=== PATIENT | male | born 1940 | race African-American/Black ===

== ENCOUNTER 2017-03-12 19:52 | Inpatient (IN) | payer OTHER ==
[~2017-03-12] VITALS: Ht 167.6 cm; Wt 84.1 kg
[2017-03-12 21:18] LABS: EOSINOPHIL (%) 0.4 % (0-5); HEMATOCRIT 39.1 % (38.0-50.0); IMMATURE GRANULOCYTE (%) 0.6 % (0.0-0.7); IMMATURE GRANULOCYTE COUNT 0.1 K/uL; INSTRUMENT ABS NEUTROPHIL CT 7.7 K/uL; LYMPHOCYTE COUNT 1.5 K/uL (1.0-2.8); MCH 29.9 PG (29.0-34.0); MCV 90.7 FL (86-99); MEAN PLAT.VOLUME 12.5 uM^3 (9.0-12.4); MONOCYTE (%) 4.6 % (3-12); MONOCYTE COUNT 0.5 K/uL (0-0.8); NEUTROPHIL (%) 78.6 % (45-76); NEUTROPHIL COUNT 7.7 K/uL (1.8-6.4); PLATELET COUNT 241 K/uL (156-360); RBC DIS.WIDTH-CV 14.2 % (11.8-14.6); RED BLOOD COUNT 4.31 M/uL (4.00-5.50); WHITE BLOOD COUNT 9.7 K/uL (4.1-10.2)
[2017-03-12 21:26] LABS: CHLORIDE 102 mEq/L (99-109); POTASSIUM 2.9 mEq/L (3.7-5.4); SODIUM 140 mEq/L (136-147)
[2017-03-12 21:28] LABS: GLUCOSE 161 mg/dL (70-99)
[2017-03-12 21:30] LABS: ANION GAP 13 MEQ/L (2-14)
[2017-03-12 21:32] LABS: GFR ESTIMATE (CALCULATED) > 59 mL/min/
[2017-03-12 21:33] LABS: UREA NITROGEN (BUN) 14 mg/dL (9-23)
[2017-03-12 21:37] LABS: TROP-I INTERPRETATION INDETERMINATE; TROPONIN-I 0.48 ng/mL (0.0-0.30)
[2017-03-12 22:45] LABS: INTER. NORMALIZED RATIO 1.2; PROTHROMBIN TIME 13.2 SEC (10.2-12.9)
[2017-03-12 22:47] LABS: PTT 29.4 SEC (25-37)
[2017-03-13] VITALS (8 sets, daily range): BP systolic 123–143; BP diastolic 74–95
[2017-03-13] MEDS ORDERED: FORTAMET500 M1 PO (01:46)
[2017-03-13] MEDS ORDERED: UNABLE TO RECALL (01:50)
[2017-03-13 02:10] LABS: POINT-OF-CARE METER ID UU13113702
[2017-03-13 05:25] LABS: HDL CHOLESTEROL 38 MG/DL (Desirable>=40); LDL CHOLESTEROL 80 mg/dL (Desirable<100); NON-HDL CHOLESTEROL 102 mg/dL (Desirable<160); TOTAL CHOLESTEROL 140 mg/dL (Desirable<200); TRIGLYCERIDES 111 MG/DL (Normal: <150)
[2017-03-13 05:52] LABS: EOSINOPHIL (%) 0 % (0-5); HEMATOCRIT 39.4 % (38.0-50.0); IMMATURE GRANULOCYTE (%) 0.5 % (0.0-0.7); LYMPHOCYTE COUNT 0.9 K/uL (1.0-2.8); MCH 30.6 PG (29.0-34.0); MCHC 33.5 G/DL (30.0-36.0); MCV 91.2 FL (86-99); MEAN PLAT.VOLUME 12.8 uM^3 (9.0-12.4); MONOCYTE (%) 0.9 % (3-12); MONOCYTE COUNT 0.1 K/uL (0-0.8); NEUTROPHIL (%) 87.1 % (45-76); PLATELET COUNT 259 K/uL (156-360); RBC DIS.WIDTH-CV 14.2 % (11.8-14.6); RBC DIS.WIDTH-SD 47.6 % (39-53); RED BLOOD COUNT 4.32 M/uL (4.00-5.50); WHITE BLOOD COUNT 8.1 K/uL (4.1-10.2)
[2017-03-13 06:56] LABS: TROP-I INTERPRETATION INDETERMINATE; TROPONIN-I 0.43 ng/mL (0.0-0.30)
[2017-03-13 07:54] LABS: POINT-OF-CARE METER ID UU13113698
[2017-03-13 10:32] LABS: ANION GAP 16 MEQ/L (2-14); CHLORIDE 101 MEQ/L (99-109); GFR ESTIMATE (CALCULATED) > 59 mL/min/; GLUCOSE 212 mg/dL (70-99); SAMPLE HEMOLYSIS CHECK 0; SAMPLE ICTERIC CHECK 0; SAMPLE LIPEMIA CHECK 0; SODIUM 144 MEQ/L (136-147); UREA NITROGEN (BUN) 14 mg/dL (9-23)
[2017-03-13 10:33] LABS: POTASSIUM 3.9 MEQ/L (3.7-5.4)
[2017-03-13 14:55] LABS: TROP-I INTERPRETATION NEGATIVE; TROPONIN-I 0.26 ng/mL (0.0-0.30)
[2017-03-13 21:08] LABS: POINT-OF-CARE METER ID UU13113803
[2017-03-14] VITALS: BP 99/56
[2017-03-14 04:35] VITALS: BP 126/88
[2017-03-14 05:31] LABS: HEMATOCRIT 37.5 % (38.0-50.0); MCH 31.1 PG (29.0-34.0); MCHC 33.9 G/DL (30.0-36.0); MCV 91.7 FL (86-99); MEAN PLAT.VOLUME 13.1 uM^3 (9.0-12.4); PLATELET COUNT 251 K/uL (156-360); RBC DIS.WIDTH-CV 14.5 % (11.8-14.6); RBC DIS.WIDTH-SD 48.9 % (39-53); RED BLOOD COUNT 4.09 M/uL (4.00-5.50); WHITE BLOOD COUNT 10.7 K/uL (4.1-10.2)
[2017-03-14 05:55] LABS: ANION GAP 11 MEQ/L (2-14); CHLORIDE 102 MEQ/L (99-109); GFR ESTIMATE (CALCULATED) > 59 mL/min/; GLUCOSE 171 mg/dL (70-99); POTASSIUM 3.8 MEQ/L (3.7-5.4); SAMPLE HEMOLYSIS CHECK 0; SAMPLE ICTERIC CHECK 0; SAMPLE LIPEMIA CHECK 0; SODIUM 143 MEQ/L (136-147); UREA NITROGEN (BUN) 27 mg/dL (9-23)
[2017-03-14 08:06] LABS: POINT-OF-CARE METER ID UU13113698
[2017-03-14 11:20] LABS: POINT-OF-CARE METER ID UU13113781
[2017-03-14 12:02] VITALS: BP 129/82
[2017-03-14] MEDS ORDERED: LASIX40 MG PO (15:45)
[2017-03-14] MEDS ORDERED: PLAVIX75 MG PO (15:45)
[2017-03-14] MEDS ORDERED: PRINIVIL20 MG PO (15:45)
[2017-03-14] MEDS ORDERED: KLOR-CON M2020 MEQ PO (15:46)
[2017-03-14] MEDS ORDERED: LIPITOR20 MG PO (15:46)
[2017-03-14] MEDS ORDERED: GLUCOPHAGE500 MG PO (15:46)
[2017-03-14] MEDS ORDERED: DUONEB 2.5-0.5 M3 ML AEROSOL (15:47)
[2017-03-14 16:17] LABS: POINT-OF-CARE METER ID UU13113698
[2017-03-14 17:05] VITALS: BP 142/68
[2017-03-14 19:43] VITALS: BP 107/73
[2017-03-14 22:29] LABS: POINT-OF-CARE METER ID UU13113781
[2017-03-14 23:23] LABS: POINT-OF-CARE METER ID UU13113781
[2017-03-15 00:27] VITALS: BP 99/52
[2017-03-15 04:13] VITALS: BP 100/58
[2017-03-15 04:52] LABS: EOSINOPHIL (%) 0 % (0-5); HEMATOCRIT 37.8 % (38.0-50.0); IMMATURE GRANULOCYTE (%) 0.6 % (0.0-0.7); IMMATURE GRANULOCYTE COUNT 0.1 K/uL; INSTRUMENT ABS NEUTROPHIL CT 10.8 K/uL; LYMPHOCYTE COUNT 1.2 K/uL (1.0-2.8); MCH 30.6 PG (29.0-34.0); MCHC 33.3 G/DL (30.0-36.0); MCV 91.7 FL (86-99); MEAN PLAT.VOLUME 12.6 uM^3 (9.0-12.4); MONOCYTE (%) 3.7 % (3-12); MONOCYTE COUNT 0.5 K/uL (0-0.8); NEUTROPHIL (%) 86.3 % (45-76); NEUTROPHIL COUNT 10.8 K/uL (1.8-6.4); PLATELET COUNT 269 K/uL (156-360); RBC DIS.WIDTH-CV 14.3 % (11.8-14.6); RBC DIS.WIDTH-SD 48.1 % (39-53); RED BLOOD COUNT 4.12 M/uL (4.00-5.50); WHITE BLOOD COUNT 12.5 K/uL (4.1-10.2)
[2017-03-15 05:07] LABS: CHLORIDE 99 mEq/L (99-109); POTASSIUM 3.7 mEq/L (3.7-5.4); SODIUM 139 mEq/L (136-147)
[2017-03-15 05:09] LABS: GLUCOSE 224 mg/dL (70-99)
[2017-03-15 05:10] LABS: ANION GAP 12 MEQ/L (2-14)
[2017-03-15 05:12] LABS: GFR ESTIMATE (CALCULATED) > 59 mL/min/
[2017-03-15 05:13] LABS: UREA NITROGEN (BUN) 37 mg/dL (9-23)
[2017-03-15 06:52] LABS: Estimated Average Glucose 151 mg/dL (70-123); HEMOGLOBIN A1c (GLYCOHEMOGLOB) 6.9 % HGB (Below 5.7)
[2017-03-15 07:45] VITALS: BP 122/90
[2017-03-15 07:58] LABS: POINT-OF-CARE METER ID UU13113698
[2017-03-15] MEDS ORDERED: ELIQUIS5 MG PO (10:51)
[2017-03-15] MEDS ORDERED: SPIRIVA RESPIMAT4 GM IH (10:51)
[2017-03-15] MEDS ORDERED: XOPENEX1.25 MG/0. AEROSOL (10:52)
[2017-03-15] MEDS ORDERED: METOPROLOL SUCC25 MG PO (10:52)
[2017-03-15] MEDS ORDERED: NITROSTAT0.4 MG SL (10:52)
[2017-03-15] MEDS ORDERED: ADVAIR HFA120 INHALA IH (10:53)
[2017-03-15] MEDS ORDERED: ASPIR-LOW81 MG PO (10:53)
[2017-03-15] MEDS ORDERED: SOTALOL120 MG PO (10:53)
[2017-03-15] MEDS ORDERED: MEDROL DOSEPAK4 MG PO (10:54)
[2017-03-15 11:26] LABS: POINT-OF-CARE METER ID UU13113781
[2017-03-15 11:54] VITALS: BP 137/86
[2017-03-15] MEDS ORDERED: PREDNISONE10 MG PO (14:13)
[2017-03-15 15:11] VITALS: BP 102/58
== END 2017-03-15 16:10 | disposition home health service (06) | DRG 308 ==
LOC: EDBD 19:52 → EME 19:52 → EDOF 03-13 01:57 → 4EAST 03-13 01:57 → ENRESERV 03-13 01:58 → 4EAST 03-13 02:48 → ENPENDDIS 03-15 → 4EAST 03-15 16:10
PROVIDERS: Emergency Medicine; Hospitalist; Internal Medicine
PROC: 4B02XTZ Measurement of Cardiac Defibrillator, External Approach (ICD-10-PCS; principal; 2017-03-14)
DX: I48.0 Paroxysmal atrial fibrillation (principal); I50.23 Acute on chronic systolic (congestive) heart failure; J44.1 Chronic obstructive pulmonary disease with (acute) exacerbation; I47.2 Ventricular tachycardia; I47.1 Supraventricular tachycardia; J98.01 Acute bronchospasm; I27.2 Other secondary pulmonary hypertension; R74.8 Abnormal levels of other serum enzymes; I25.5 Ischemic cardiomyopathy; I25.10 Atherosclerotic heart disease of native coronary artery without angina pectoris; I11.0 Hypertensive heart disease with heart failure; E11.9 Type 2 diabetes mellitus without complications; F17.210 Nicotine dependence, cigarettes, uncomplicated; E78.5 Hyperlipidemia, unspecified; I49.9 Cardiac arrhythmia, unspecified; Z68.30 Body mass index [BMI] 30.0-30.9, adult; I25.2 Old myocardial infarction; Z79.84 Long term (current) use of oral hypoglycemic drugs; Z98.61 Coronary angioplasty status; Z95.810 Presence of automatic (implantable) cardiac defibrillator
CPT/HCPCS: 71010; 78582; 80048; 80061; 82948; 83036; 83880; 84484; 85025; 85027; 85610; 85730; 87040; 87070; 87205; 93005; 93306; 94640; 94640 76; 94799; 99202; 99281; 99285; A9540; A9567; J0696; J1100; J1644; J1815; J1940; J2930; J7050

== ENCOUNTER 2017-03-17 15:39 | Observation (INO) | payer OTHER ==
[~2017-03-17] VITALS: Ht 167.6 cm; Wt 84.0 kg
[~2017-03-17 15:39] MED LIST: ADVAIR HFA120 INHALA IH; ASPIR-LOW81 MG PO; DUONEB 2.5-0.5 M3 ML AEROSOL; ELIQUIS5 MG PO; FORTAMET500 M1 PO; GLUCOPHAGE500 MG PO; KLOR-CON M2020 MEQ PO; LASIX40 MG PO; LIPITOR20 MG PO; MEDROL DOSEPAK4 MG PO; METOPROLOL SUCC25 MG PO; NITROSTAT0.4 MG SL; PLAVIX75 MG PO; PREDNISONE10 MG PO; PRINIVIL20 MG PO; SOTALOL120 MG PO; SPIRIVA RESPIMAT4 GM IH; UNABLE TO RECALL; XOPENEX1.25 MG/0. AEROSOL
[2017-03-17 16:24] LABS: HEMATOCRIT 38.4 % (38.0-50.0); MCH 30.4 PG (29.0-34.0); MCHC 33.3 G/DL (30.0-36.0); MCV 91.2 FL (86-99); MEAN PLAT.VOLUME 11.9 uM^3 (9.0-12.4); PLATELET COUNT 233 K/uL (156-360); RBC DIS.WIDTH-CV 13.9 % (11.8-14.6); RBC DIS.WIDTH-SD 46.5 % (39-53); RED BLOOD COUNT 4.21 M/uL (4.00-5.50)
[2017-03-17 16:34] LABS: CHLORIDE 102 mEq/L (99-109); POTASSIUM 3.3 mEq/L (3.7-5.4); SODIUM 140 mEq/L (136-147)
[2017-03-17 16:35] LABS: GLUCOSE 191 mg/dL (70-99)
[2017-03-17 16:37] LABS: ANION GAP 10 MEQ/L (2-14)
[2017-03-17 16:39] LABS: GFR ESTIMATE (CALCULATED) > 59 mL/min/
[2017-03-17 16:40] LABS: UREA NITROGEN (BUN) 28 mg/dL (9-23)
[2017-03-17 16:46] LABS: TROP-I INTERPRETATION NEGATIVE; TROPONIN-I 0.08 ng/mL (0.0-0.30)
[2017-03-17 20:42] VITALS: BP 120/71
[2017-03-17 21:01] LABS: POINT-OF-CARE METER ID UU13113700
[2017-03-17 22:36] LABS: TROP-I INTERPRETATION NEGATIVE
[2017-03-17 23:17] VITALS: BP 106/75
[2017-03-18 04:29] VITALS: BP 134/76
[2017-03-18 05:30] LABS: HEMATOCRIT 39.4 % (38.0-50.0); MCH 30.2 PG (29.0-34.0); MCHC 33.2 G/DL (30.0-36.0); MCV 90.8 FL (86-99); MEAN PLAT.VOLUME 12.9 uM^3 (9.0-12.4); PLATELET COUNT 236 K/uL (156-360); RBC DIS.WIDTH-CV 13.6 % (11.8-14.6); RBC DIS.WIDTH-SD 45.5 % (39-53); RED BLOOD COUNT 4.34 M/uL (4.00-5.50); WHITE BLOOD COUNT 9.3 K/uL (4.1-10.2)
[2017-03-18 05:42] LABS: TROP-I INTERPRETATION NEGATIVE; TROPONIN-I 0.07 ng/mL (0.0-0.30)
[2017-03-18 05:57] LABS: ANION GAP 11 MEQ/L (2-14); CHLORIDE 101 MEQ/L (99-109); GFR ESTIMATE (CALCULATED) > 59 mL/min/; GLUCOSE 182 mg/dL (70-99); SAMPLE HEMOLYSIS CHECK 0; SAMPLE ICTERIC CHECK 0; SAMPLE LIPEMIA CHECK 0; SODIUM 140 MEQ/L (136-147); UREA NITROGEN (BUN) 26 mg/dL (9-23)
[2017-03-18 08:07] LABS: POINT-OF-CARE METER ID UU13113700
[2017-03-18 08:40] VITALS: BP 132/76
[2017-03-18 11:17] VITALS: BP 126/81
[2017-03-18] MEDS ORDERED: AZITHROMYCIN500 M1 PO (12:25)
[2017-03-18 12:44] LABS: POINT-OF-CARE METER ID UU13113700
== END 2017-03-18 14:53 | disposition home or self-care (01) ==
LOC: EME 15:39 → EDOF 18:24 → ENRESERV 18:27 → 5WEST 20:16
PROVIDERS: Emergency Medicine; Hospitalist
DX: I50.23 Acute on chronic systolic (congestive) heart failure (principal); J44.1 Chronic obstructive pulmonary disease with (acute) exacerbation; I10 Essential (primary) hypertension; I42.9 Cardiomyopathy, unspecified; Z95.810 Presence of automatic (implantable) cardiac defibrillator; I48.0 Paroxysmal atrial fibrillation; Z79.01 Long term (current) use of anticoagulants; E11.9 Type 2 diabetes mellitus without complications; E05.90 Thyrotoxicosis, unspecified without thyrotoxic crisis or storm; I25.10 Atherosclerotic heart disease of native coronary artery without angina pectoris; E78.5 Hyperlipidemia, unspecified; F17.210 Nicotine dependence, cigarettes, uncomplicated
CPT/HCPCS: 71010; 71020; 80048; 82948; 83880; 84484; 85027; 93005; 94640; 94640 76; 94799; 99202; 99281; 99285; G0378; G8978 GP CI; G8979 GP CH; G8987 GO CI; G8988 GO CH; G8989 GO CH; J1815; J1940; J2930

== ENCOUNTER 2017-03-20 20:47 | Emergency (ER) | payer OTHER ==
[~2017-03-20] VITALS: Ht 167.6 cm; Wt 82.8 kg
[~2017-03-20 20:47] MED LIST changes: +AZITHROMYCIN500 M1 PO
[2017-03-20 21:43] LABS: HEMATOCRIT 40.4 % (38.0-50.0); MCH 30.4 PG (29.0-34.0); MCHC 33.7 G/DL (30.0-36.0); MCV 90.2 FL (86-99); RBC DIS.WIDTH-CV 13.6 % (11.8-14.6); RBC DIS.WIDTH-SD 44.7 % (39-53); RED BLOOD COUNT 4.48 M/uL (4.00-5.50)
[2017-03-20 21:49] LABS: INTER. NORMALIZED RATIO 1.7; PROTHROMBIN TIME 18.7 SEC (10.2-12.9)
[2017-03-20 21:51] LABS: CHLORIDE 99 mEq/L (99-109); POTASSIUM 3.3 mEq/L (3.7-5.4); SODIUM 139 mEq/L (136-147)
[2017-03-20 21:52] LABS: PTT 34.2 SEC (25-37)
[2017-03-20 21:53] LABS: GLUCOSE 199 mg/dL (70-99)
[2017-03-20 21:54] LABS: ANION GAP 12 MEQ/L (2-14)
[2017-03-20 21:57] LABS: GFR ESTIMATE (CALCULATED) > 59 mL/min/; UREA NITROGEN (BUN) 23 mg/dL (9-23)
[2017-03-20 22:26] LABS: TROP-I INTERPRETATION NEGATIVE; TROPONIN-I 0.04 ng/mL (0.0-0.30)
[2017-03-20] MEDS ORDERED: ZITHROMAX250 MG PO (22:56)
[2017-03-20] MEDS ORDERED: PREDNISONE50 MG PO (22:56)
[2017-03-20 23:09] VITALS: BP 106/68
[2017-03-20 23:15] LABS: MEAN PLAT.VOLUME 12.1 uM^3 (9.0-12.4); PLAT.SUFFICIENCY ADEQUATE; PLATELET COUNT 272 K/uL (156-360)
== END 2017-03-20 23:36 | disposition home or self-care (01) ==
LOC: EME → EDBD 20:47 → EME 23:36
PROVIDERS: Emergency Medicine
DX: J44.1 Chronic obstructive pulmonary disease with (acute) exacerbation (principal); R07.89 Other chest pain; I25.2 Old myocardial infarction; F17.200 Nicotine dependence, unspecified, uncomplicated
CPT/HCPCS: 71020; 80048; 84484; 85027; 85610; 85730; 93005; 94640; J1885; J7512

== ENCOUNTER 2017-03-30 00:01 | Inpatient (IN) | payer OTHER ==
[~2017-03-30] VITALS: Ht 167.6 cm; Wt 81.2 kg
[~2017-03-30 00:01] MED LIST changes: +PREDNISONE50 MG PO; +ZITHROMAX250 MG PO
[2017-03-30 00:46] LABS: HEMATOCRIT 39.6 % (38.0-50.0); MCH 30.3 PG (29.0-34.0); MCHC 33.8 G/DL (30.0-36.0); MCV 89.6 FL (86-99); RBC DIS.WIDTH-CV 13.7 % (11.8-14.6); RBC DIS.WIDTH-SD 44.9 % (39-53); RED BLOOD COUNT 4.42 M/uL (4.00-5.50); WHITE BLOOD COUNT 8.4 K/uL (4.1-10.2)
[2017-03-30 00:50] LABS: INTER. NORMALIZED RATIO 1.4
[2017-03-30 00:53] LABS: CHLORIDE 100 mEq/L (99-109); PTT 31.6 SEC (25-37); SODIUM 138 mEq/L (136-147)
[2017-03-30 00:55] LABS: GLUCOSE 117 mg/dL (70-99)
[2017-03-30 00:56] LABS: ANION GAP 11 MEQ/L (2-14)
[2017-03-30 00:57] LABS: TOTAL BILIRUBIN 0.7 mg/dL (0.0-1.0)
[2017-03-30 00:59] LABS: ALKALINE PHOSPHATASE 53 IU/L (3-129); GFR ESTIMATE (CALCULATED) > 59 mL/min/
[2017-03-30 01:00] LABS: UREA NITROGEN (BUN) 16 mg/dL (9-23)
[2017-03-30 01:02] LABS: LIPASE 32 U/L (1.0-51.0)
[2017-03-30 01:05] LABS: TROP-I INTERPRETATION NEGATIVE; TROPONIN-I 0.07 ng/mL (0.0-0.30)
[2017-03-30 01:49] LABS: MEAN PLAT.VOLUME 11.6 uM^3 (9.0-12.4); PLAT.SUFFICIENCY ADEQUATE
[2017-03-30 01:50] LABS: PLATELET COUNT 170 K/uL (156-360)
[2017-03-30 05:47] VITALS: BP 106/55
[2017-03-30 06:50] LABS: ANION GAP 6 MEQ/L (2-14); CHLORIDE 102 MEQ/L (99-109); GFR ESTIMATE (CALCULATED) > 59 mL/min/; GLUCOSE 117 mg/dL (70-99); POTASSIUM 3.9 MEQ/L (3.7-5.4); SAMPLE HEMOLYSIS CHECK 0; SAMPLE ICTERIC CHECK 0; SAMPLE LIPEMIA CHECK 0; SODIUM 140 MEQ/L (136-147); UREA NITROGEN (BUN) 16 mg/dL (9-23)
[2017-03-30 06:54] LABS: TROP-I INTERPRETATION NEGATIVE; TROPONIN-I 0.09 ng/mL (0.0-0.30)
[2017-03-30 08:22] LABS: POINT-OF-CARE METER ID UU13113781
[2017-03-30 08:30] VITALS: BP 90/54
[2017-03-30 11:15] LABS: POINT-OF-CARE METER ID UU13113781
[2017-03-30 11:57] VITALS: BP 98/62
[2017-03-30 13:38] LABS: TROP-I INTERPRETATION NEGATIVE; TROPONIN-I 0.04 ng/mL (0.0-0.30)
[2017-03-30 15:40] VITALS: BP 122/68
== END 2017-03-30 16:21 | disposition home health service (06) | DRG 313 ==
LOC: EME 00:01 → 4EAST 03:30 → EDOF 03:30 → ENRESERV 03:32 → 4EAST 05:37
PROVIDERS: Emergency Medicine; Hospitalist
DX: R07.89 Other chest pain (principal); I95.9 Hypotension, unspecified; I25.10 Atherosclerotic heart disease of native coronary artery without angina pectoris; I11.0 Hypertensive heart disease with heart failure; I50.22 Chronic systolic (congestive) heart failure; I48.0 Paroxysmal atrial fibrillation; J44.1 Chronic obstructive pulmonary disease with (acute) exacerbation; E11.9 Type 2 diabetes mellitus without complications; E78.5 Hyperlipidemia, unspecified; E87.6 Hypokalemia; I25.5 Ischemic cardiomyopathy; I49.3 Ventricular premature depolarization; F17.200 Nicotine dependence, unspecified, uncomplicated; I25.2 Old myocardial infarction; Z95.5 Presence of coronary angioplasty implant and graft; Z95.810 Presence of automatic (implantable) cardiac defibrillator; Z99.81 Dependence on supplemental oxygen; Z79.01 Long term (current) use of anticoagulants; Z79.82 Long term (current) use of aspirin; Z79.4 Long term (current) use of insulin
CPT/HCPCS: 71020; 80048 91; 80053; 81003; 82948; 83605; 83690; 83880; 84443; 84484; 85027; 85610; 85730; 87040; 93005; 94640; 99202; 99281; 99285; J1815; J7030; J7512

== ENCOUNTER 2017-04-20 18:35 | Emergency (ER) | payer OTHER ==
[~2017-04-20] VITALS: Ht 167.6 cm; Wt 78.6 kg
[2017-04-20 19:21] LABS: HEMATOCRIT 41.6 % (38.0-50.0); MCH 30.3 PG (29.0-34.0); MCHC 34.6 G/DL (30.0-36.0); MCV 87.6 FL (86-99); MEAN PLAT.VOLUME 11.5 uM^3 (9.0-12.4); RBC DIS.WIDTH-CV 13.3 % (11.8-14.6); RBC DIS.WIDTH-SD 42.8 % (39-53); RED BLOOD COUNT 4.75 M/uL (4.00-5.50); WHITE BLOOD COUNT 10.1 K/uL (4.1-10.2)
[2017-04-20 19:22] LABS: PLATELET COUNT 250 K/uL (156-360)
[2017-04-20 19:35] LABS: CHLORIDE 100 mEq/L (99-109); POTASSIUM 3.5 mEq/L (3.7-5.4); SODIUM 137 mEq/L (136-147)
[2017-04-20 19:38] LABS: GLUCOSE 163 mg/dL (70-99)
[2017-04-20 19:39] LABS: ANION GAP 16 MEQ/L (2-14)
[2017-04-20 19:40] LABS: TOTAL BILIRUBIN 0.4 mg/dL (0.0-1.0)
[2017-04-20 19:41] LABS: ALKALINE PHOSPHATASE 55 IU/L (3-129); GFR ESTIMATE (CALCULATED) > 59 mL/min/
[2017-04-20 19:43] LABS: UREA NITROGEN (BUN) 20 mg/dL (9-23)
[2017-04-20 21:23] LABS: ADD MIUA? YES; BILIRUBIN NEGATIVE; BLOOD SMALL; COLOR YELLOW ((YELLOW)); GLUCOSE (STRIP) NEGATIVE; KETONES NEGATIVE; LEUKOCYTES NEGATIVE; NITRITE NEGATIVE; PROTEIN (STRIP) NEGATIVE; SPECIFIC GRAVITY 1.011 (1.000-1.030); UROBILINOGEN 0.2 MG/DL (0.2-1.0)
[2017-04-20 21:31] LABS: BACTERIA NONE SEEN /HPF; EPITHELIAL CELLS RARE /HPF; MUCUS TRACE /LPF; RED BLOOD CELLS 0-5 /HPF (0-5); UCUL ADDED? NO; WHITE BLOOD CELLS 0-5 /HPF (0-5)
[2017-04-21] MEDS ORDERED: ZOFRAN ODT4 MG PO (00:02)
[2017-04-21] MEDS ORDERED: MOTRIN600 MG PO (00:02)
[2017-04-21] MEDS ORDERED: BENTYL20 MG PO (00:02)
[2017-04-21 00:28] VITALS: BP 134/95
== END 2017-04-21 00:31 | disposition home or self-care (01) ==
LOC: EME 18:35
DX: R10.32 Left lower quadrant pain (principal); R31.9 Hematuria, unspecified; R11.2 Nausea with vomiting, unspecified; I11.0 Hypertensive heart disease with heart failure; I50.9 Heart failure, unspecified; E11.9 Type 2 diabetes mellitus without complications; Z79.84 Long term (current) use of oral hypoglycemic drugs; I25.2 Old myocardial infarction; F12.90 Cannabis use, unspecified, uncomplicated; F17.200 Nicotine dependence, unspecified, uncomplicated
CPT/HCPCS: 74177; 80053; 81003; 85027; 99281; 99285; J1885; J7030

== ENCOUNTER 2017-05-03 19:16 | Inpatient (IN) | payer OTHER ==
[~2017-05-03] VITALS: Ht 167.6 cm; Wt 78.8 kg
[~2017-05-03 19:16] MED LIST changes: +BENTYL20 MG PO; +MOTRIN600 MG PO; +ZOFRAN ODT4 MG PO
[2017-05-03 19:58] LABS: HEMATOCRIT 37.7 % (38.0-50.0); MCH 30.8 PG (29.0-34.0); MCHC 33.7 G/DL (30.0-36.0); MCV 91.5 FL (86-99); MEAN PLAT.VOLUME 11.3 uM^3 (9.0-12.4); PLATELET COUNT 301 K/uL (156-360); RBC DIS.WIDTH-CV 13.8 % (11.8-14.6); RBC DIS.WIDTH-SD 46.5 % (39-53); RED BLOOD COUNT 4.12 M/uL (4.00-5.50)
[2017-05-03 20:14] LABS: CHLORIDE 105 mEq/L (99-109); POTASSIUM 3.7 mEq/L (3.7-5.4); SODIUM 143 mEq/L (136-147)
[2017-05-03 20:16] LABS: GLUCOSE 173 mg/dL (70-99)
[2017-05-03 20:17] LABS: ANION GAP 14 MEQ/L (2-14)
[2017-05-03 20:20] LABS: GFR ESTIMATE (CALCULATED) > 59 mL/min/
[2017-05-03 20:21] LABS: UREA NITROGEN (BUN) 45 mg/dL (9-23)
[2017-05-03 21:43] LABS: TROP-I INTERPRETATION NEGATIVE; TROPONIN-I 0.04 ng/mL (0.0-0.30)
[2017-05-03 22:00] LABS: PTT 32.4 SEC (25-37)
[2017-05-03] MEDS ORDERED: PLAVIX75 MG PO (22:33)
[2017-05-03] MEDS ORDERED: DUONEB 2.5-0.5 M3 ML AEROSOL (22:33)
[2017-05-03 23:27] LABS: INTER. NORMALIZED RATIO 1.6
[2017-05-03 23:40] LABS: ADD MIUA? NO; BILIRUBIN NEGATIVE; BLOOD NEGATIVE; COLOR YELLOW ((YELLOW)); GLUCOSE (STRIP) NEGATIVE; KETONES 5; LEUKOCYTES NEGATIVE; NITRITE NEGATIVE; PROTEIN (STRIP) NEGATIVE; SPECIFIC GRAVITY 1.015 (1.000-1.030); UCUL ADDED? NO; UROBILINOGEN 0.2 MG/DL (0.2-1.0)
[2017-05-04] VITALS (17 sets, daily range): BP systolic 110–135; BP diastolic 60–100
[2017-05-04] LABS: WHITE BLOOD COUNT 14.4 K/uL (4.1-10.2)
[2017-05-04 00:01] LABS: MCH 30.3 PG (29.0-34.0); MCHC 33.2 G/DL (30.0-36.0); MCV 91.2 FL (86-99); MEAN PLAT.VOLUME 11.6 uM^3 (9.0-12.4); PLATELET COUNT 229 K/uL (156-360); RBC DIS.WIDTH-CV 13.9 % (11.8-14.6); RBC DIS.WIDTH-SD 46.6 % (39-53)
[2017-05-04 01:09] LABS: TOTAL BILIRUBIN 0.5 mg/dL (0.0-1.0)
[2017-05-04 01:10] LABS: ALKALINE PHOSPHATASE 48 IU/L (3-129)
[2017-05-04 01:12] LABS: DIRECT BILIRUBIN 0.2 mg/dL (0.0-0.3)
[2017-05-04 01:13] LABS: LIPASE 12 U/L (1.0-51.0)
[2017-05-04 01:28] LABS: POINT-OF-CARE METER ID UU14174216
[2017-05-04 01:45] LABS: MCV 90.1 FL (86-99)
[2017-05-04 05:30] LABS: EOSINOPHIL (%) 0.1 % (0-5); HEMATOCRIT 28.1 % (38.0-50.0); IMMATURE GRANULOCYTE (%) 0.5 % (0.0-0.7); IMMATURE GRANULOCYTE COUNT 0.1 K/uL; INSTRUMENT ABS NEUTROPHIL CT 8.9 K/uL; LYMPHOCYTE COUNT 4.9 K/uL (1.0-2.8); MCH 31.6 PG (29.0-34.0); MCHC 34.2 G/DL (30.0-36.0); MCV 92.4 FL (86-99); MONOCYTE COUNT 1.4 K/uL (0-0.8); NEUTROPHIL (%) 58.1 % (45-76); NEUTROPHIL COUNT 8.9 K/uL (1.8-6.4); PLATELET COUNT 221 K/uL (156-360); RBC DIS.WIDTH-CV 14.1 % (11.8-14.6); RBC DIS.WIDTH-SD 47.7 % (39-53); RED BLOOD COUNT 3.04 M/uL (4.00-5.50); WHITE BLOOD COUNT 15.3 K/uL (4.1-10.2)
[2017-05-04 05:53] LABS: ANION GAP 9 MEQ/L (2-14); CHLORIDE 108 MEQ/L (99-109); GFR ESTIMATE (CALCULATED) > 59 mL/min/; GLUCOSE 132 mg/dL (70-99); POTASSIUM 3.5 MEQ/L (3.7-5.4); SAMPLE HEMOLYSIS CHECK 0; SAMPLE ICTERIC CHECK 0; SAMPLE LIPEMIA CHECK 0; SODIUM 146 MEQ/L (136-147); UREA NITROGEN (BUN) 47 mg/dL (9-23)
[2017-05-04 06:35] LABS: POINT-OF-CARE METER ID UU14174216
[2017-05-04 08:22] LABS: HEMATOCRIT 28.3 % (38.0-50.0); MCV 91.3 FL (86-99)
[2017-05-04 10:31] LABS: C DIFF TOXIN NEGATIVE (NEGATIVE)
[2017-05-04 10:32] LABS: PROBE CHECK PASS; SPECIMEN PROCESSING CONTROL PASS
[2017-05-04 12:28] LABS: POINT-OF-CARE METER ID UU14314088
[2017-05-04 14:07] LABS: HEMATOCRIT 28.1 % (38.0-50.0)
[2017-05-04 15:54] LABS: POINT-OF-CARE METER ID UU14107333
[2017-05-04 18:40] LABS: EOSINOPHIL (%) 0 % (0-5); IMMATURE GRANULOCYTE (%) 0.6 % (0.0-0.7); IMMATURE GRANULOCYTE COUNT 0.1 K/uL; INSTRUMENT ABS NEUTROPHIL CT 10.2 K/uL; LYMPHOCYTE COUNT 3.1 K/uL (1.0-2.8); MCH 30.6 PG (29.0-34.0); MCHC 32.9 G/DL (30.0-36.0); MEAN PLAT.VOLUME 11.5 uM^3 (9.0-12.4); MONOCYTE (%) 5.3 % (3-12); MONOCYTE COUNT 0.8 K/uL (0-0.8); NEUTROPHIL (%) 71.8 % (45-76); NEUTROPHIL COUNT 10.2 K/uL (1.8-6.4); PLATELET COUNT 243 K/uL (156-360); RBC DIS.WIDTH-CV 14.1 % (11.8-14.6); RBC DIS.WIDTH-SD 47.7 % (39-53); RED BLOOD COUNT 3.01 M/uL (4.00-5.50); WHITE BLOOD COUNT 14.2 K/uL (4.1-10.2)
[2017-05-04 18:46] LABS: MCH 30.6 PG (29.0-34.0); MCHC 32.9 G/DL (30.0-36.0); MEAN PLAT.VOLUME 11.5 uM^3 (9.0-12.4); PLATELET COUNT 243 K/uL (156-360); RBC DIS.WIDTH-CV 14.1 % (11.8-14.6); RBC DIS.WIDTH-SD 47.7 % (39-53); RED BLOOD COUNT 3.01 M/uL (4.00-5.50); WHITE BLOOD COUNT 14.2 K/uL (4.1-10.2)
[2017-05-04 18:49] LABS: ANION GAP 10 MEQ/L (2-14); CHLORIDE 110 MEQ/L (99-109); MAGNESIUM 1.6 mg/dl (1.3-2.7); POTASSIUM 4.1 MEQ/L (3.7-5.4); SAMPLE HEMOLYSIS CHECK 0; SAMPLE ICTERIC CHECK 0; SAMPLE LIPEMIA CHECK 0; SODIUM 147 MEQ/L (136-147)
[2017-05-04 18:54] LABS: GFR ESTIMATE (CALCULATED) > 59 mL/min/; GLUCOSE 197 mg/dL (70-99); UREA NITROGEN (BUN) 48 mg/dL (9-23)
[2017-05-04 19:24] LABS: METH RESISTANT S AUREUS PCR NEGATIVE (NEGATIVE); PROBE CHECK PASS; SPECIMEN PROCESSING CONTROL PASS
[2017-05-05] VITALS (21 sets, daily range): BP systolic 82–122; BP diastolic 36–89
[2017-05-05 00:31] LABS: MCV 90.9 FL (86-99)
[2017-05-05 08:51] LABS: POINT-OF-CARE METER ID UU14314083
[2017-05-05 10:48] LABS: HEMATOCRIT 29.5 % (38.0-50.0); MCH 30.1 PG (29.0-34.0); MCHC 32.9 G/DL (30.0-36.0); MCV 91.6 FL (86-99); MEAN PLAT.VOLUME 11.5 uM^3 (9.0-12.4); PLATELET COUNT 174 K/uL (156-360); RBC DIS.WIDTH-CV 15.5 % (11.8-14.6); RBC DIS.WIDTH-SD 51.5 % (39-53); RED BLOOD COUNT 3.22 M/uL (4.00-5.50); WHITE BLOOD COUNT 12.3 K/uL (4.1-10.2)
[2017-05-05 10:51] LABS: INTER. NORMALIZED RATIO 1.3; PROTHROMBIN TIME 14.4 SEC (10.2-12.9)
[2017-05-05 11:36] LABS: ANION GAP 11 MEQ/L (2-14); GFR ESTIMATE (CALCULATED) > 59 mL/min/; GLUCOSE 154 mg/dL (70-99); MAGNESIUM 1.7 mg/dl (1.3-2.7); SAMPLE HEMOLYSIS CHECK 0; SAMPLE ICTERIC CHECK 0; SAMPLE LIPEMIA CHECK 0; UREA NITROGEN (BUN) 33 mg/dL (9-23)
[2017-05-05 12:04] LABS: CHLORIDE 110 MEQ/L (99-109); SODIUM 150 MEQ/L (136-147)
[2017-05-05 12:14] LABS: HEMATOCRIT 30.5 % (38.0-50.0); MCV 91.3 FL (86-99)
[2017-05-05 13:44] LABS: POINT-OF-CARE METER ID UU14107333
[2017-05-05 17:27] LABS: HEMATOCRIT 26.8 % (38.0-50.0); MCV 91.2 FL (86-99)
[2017-05-05 18:21] LABS: POINT-OF-CARE METER ID UU13113803
[2017-05-05 22:51] LABS: POINT-OF-CARE METER ID UU14314083
[2017-05-06] VITALS (15 sets, daily range): BP systolic 91–120; BP diastolic 51–76
[2017-05-06 00:49] LABS: HEMATOCRIT 27.3 % (38.0-50.0); MCV 88.9 FL (86-99)
[2017-05-06 01:58] LABS: POINT-OF-CARE METER ID UU14314083
[2017-05-06 05:22] LABS: BASOPHIL COUNT 0.1 K/uL (0-0.1); EOSINOPHIL (%) 0.9 % (0-5); EOSINOPHIL COUNT 0.1 K/uL (0-0.3); IMMATURE GRANULOCYTE (%) 0.5 % (0.0-0.7); IMMATURE GRANULOCYTE COUNT 0.1 K/uL; INSTRUMENT ABS NEUTROPHIL CT 7.3 K/uL; LYMPHOCYTE COUNT 3.5 K/uL (1.0-2.8); MCHC 32.7 G/DL (30.0-36.0); MCV 91.9 FL (86-99); MONOCYTE (%) 9.4 % (3-12); MONOCYTE COUNT 1.1 K/uL (0-0.8); NEUTROPHIL (%) 59.6 % (45-76); NEUTROPHIL COUNT 7.3 K/uL (1.8-6.4); PLATELET COUNT 157 K/uL (156-360); RBC DIS.WIDTH-CV 15.9 % (11.8-14.6); RBC DIS.WIDTH-SD 53.6 % (39-53); RED BLOOD COUNT 2.83 M/uL (4.00-5.50); WHITE BLOOD COUNT 12.2 K/uL (4.1-10.2)
[2017-05-06 05:51] LABS: ANION GAP 7 MEQ/L (2-14); CHLORIDE 105 MEQ/L (99-109); GFR ESTIMATE (CALCULATED) > 59 mL/min/; GLUCOSE 119 mg/dL (70-99); SAMPLE HEMOLYSIS CHECK 0; SAMPLE ICTERIC CHECK 0; SAMPLE LIPEMIA CHECK 0; SODIUM 146 MEQ/L (136-147); UREA NITROGEN (BUN) 19 mg/dL (9-23)
[2017-05-06 05:52] LABS: POTASSIUM 2.9 MEQ/L (3.7-5.4)
[2017-05-06 06:18] LABS: POINT-OF-CARE METER ID UU14314083
[2017-05-06 09:28] LABS: MAGNESIUM 2.1 mg/dl (1.3-2.7)
[2017-05-06 12:57] LABS: POINT-OF-CARE METER ID UU14314083
[2017-05-06 16:49] LABS: POINT-OF-CARE METER ID UU14314088
[2017-05-06 18:09] LABS: HEMATOCRIT 27.1 % (38.0-50.0)
[2017-05-06 20:32] LABS: POINT-OF-CARE METER ID UU14314088
[2017-05-07 04:27] VITALS: BP 121/64
[2017-05-07 05:32] LABS: EOSINOPHIL (%) 1.9 % (0-5); EOSINOPHIL COUNT 0.2 K/uL (0-0.3); HEMATOCRIT 24.6 % (38.0-50.0); IMMATURE GRANULOCYTE (%) 0.5 % (0.0-0.7); IMMATURE GRANULOCYTE COUNT 0.1 K/uL; INSTRUMENT ABS NEUTROPHIL CT 7.7 K/uL; LYMPHOCYTE COUNT 3.6 K/uL (1.0-2.8); MCH 30.9 PG (29.0-34.0); MCHC 34.1 G/DL (30.0-36.0); MCV 90.4 FL (86-99); MEAN PLAT.VOLUME 12.3 uM^3 (9.0-12.4); MONOCYTE (%) 7.7 % (3-12); NEUTROPHIL (%) 60.8 % (45-76); NEUTROPHIL COUNT 7.7 K/uL (1.8-6.4); PLATELET COUNT 160 K/uL (156-360); RBC DIS.WIDTH-CV 15.1 % (11.8-14.6); RBC DIS.WIDTH-SD 49.3 % (39-53); RED BLOOD COUNT 2.72 M/uL (4.00-5.50); WHITE BLOOD COUNT 12.6 K/uL (4.1-10.2)
[2017-05-07 06:00] LABS: ANION GAP 8 MEQ/L (2-14); CHLORIDE 103 MEQ/L (99-109); GFR ESTIMATE (CALCULATED) > 59 mL/min/; GLUCOSE 116 mg/dL (70-99); MAGNESIUM 1.8 mg/dl (1.3-2.7); POTASSIUM 3.2 MEQ/L (3.7-5.4); SAMPLE HEMOLYSIS CHECK 0; SAMPLE ICTERIC CHECK 0; SAMPLE LIPEMIA CHECK 0; SODIUM 140 MEQ/L (136-147); UREA NITROGEN (BUN) 13 mg/dL (9-23)
[2017-05-07 07:53] VITALS: BP 112/71
[2017-05-07 07:53] LABS: POINT-OF-CARE METER ID UU13113698
[2017-05-07 11:24] LABS: POINT-OF-CARE METER ID UU13113781
[2017-05-07 11:44] VITALS: BP 98/63
[2017-05-07 15:45] VITALS: BP 113/58
[2017-05-07 16:15] LABS: POINT-OF-CARE METER ID UU13113698
[2017-05-07 19:18] LABS: ANION GAP 8 MEQ/L (2-14); CHLORIDE 104 MEQ/L (99-109); GFR ESTIMATE (CALCULATED) > 59 mL/min/; GLUCOSE 150 mg/dL (70-99); POTASSIUM 3.7 MEQ/L (3.7-5.4); SAMPLE HEMOLYSIS CHECK 0; SAMPLE ICTERIC CHECK 0; SAMPLE LIPEMIA CHECK 0; SODIUM 137 MEQ/L (136-147); UREA NITROGEN (BUN) 9 mg/dL (9-23)
[2017-05-07 19:27] VITALS: BP 106/57
[2017-05-07 19:34] LABS: HEMATOCRIT 26.2 % (38.0-50.0); MCV 91.3 FL (86-99)
[2017-05-07 21:13] LABS: POINT-OF-CARE METER ID UU14314088
[2017-05-08 00:07] VITALS: BP 103/64
[2017-05-08 04:51] VITALS: BP 102/56
[2017-05-08 07:40] LABS: HEMATOCRIT 26.8 % (38.0-50.0); MCH 31.3 PG (29.0-34.0); MCV 92.1 FL (86-99); PLATELET COUNT 181 K/uL (156-360); RBC DIS.WIDTH-CV 15.2 % (11.8-14.6); RED BLOOD COUNT 2.91 M/uL (4.00-5.50); WHITE BLOOD COUNT 11.4 K/uL (4.1-10.2)
[2017-05-08 07:49] VITALS: BP 113/77
[2017-05-08 07:50] LABS: POINT-OF-CARE METER ID UU14314088
[2017-05-08 08:07] LABS: ANION GAP 7 MEQ/L (2-14); CHLORIDE 105 MEQ/L (99-109); GFR ESTIMATE (CALCULATED) > 59 mL/min/; GLUCOSE 124 mg/dL (70-99); POTASSIUM 3.6 MEQ/L (3.7-5.4); SAMPLE HEMOLYSIS CHECK 0; SAMPLE ICTERIC CHECK 0; SAMPLE LIPEMIA CHECK 0; SODIUM 142 MEQ/L (136-147); UREA NITROGEN (BUN) 8 mg/dL (9-23)
[2017-05-08] MEDS ORDERED: LOPRESSOR25 MG PO (09:00)
[2017-05-08] MEDS ORDERED: FUROSEMIDE20 MG PO (09:02)
[2017-05-08] MEDS ORDERED: PROTONIX40 MG PO (09:03)
[2017-05-08] MEDS ORDERED: ALDACTONE25 MG PO (09:04)
[2017-05-08 11:10] LABS: POINT-OF-CARE METER ID UU14314088
[2017-05-08 11:35] VITALS: BP 96/69
== END 2017-05-08 13:31 | disposition home or self-care (01) | DRG 377 ==
LOC: EME 19:16 → 4WEST 22:30 → EDOF 22:30 → 4EAST 22:30 → ENRESERV 22:32 → 4EAST 05-04 00:35 → CANRESERV 05-04 16:36 → ENRESERV 05-04 16:36 → 4EAST 05-04 16:43 → ENRESERV 05-04 17:19 → 4WEST 05-04 17:42 → CANRESERV 05-06 14:58 → ENRESERV 05-06 14:58 → 4EAST 05-06 16:21
PROVIDERS: Emergency Medicine; Family Medicine; Hospitalist; Internal Medicine Critical Care Medicine; Internal Medicine Gastroenterology; Surgery
PROC: 30233N1 Transfusion of Nonautologous Red Blood Cells into Peripheral Vein, Percutaneous Approach (ICD-10-PCS; 2017-05-03)
PROC: 3E0G8GC Introduction of Other Therapeutic Substance into Upper GI, Via Natural or Artificial Opening Endoscopic (ICD-10-PCS; principal; 2017-05-04)
PROC: 0DJ68ZZ Inspection of Stomach, Via Natural or Artificial Opening Endoscopic (ICD-10-PCS; 2017-05-05)
DX: K25.4 Chronic or unspecified gastric ulcer with hemorrhage (principal); I48.0 Paroxysmal atrial fibrillation; I25.5 Ischemic cardiomyopathy; D62 Acute posthemorrhagic anemia; J44.9 Chronic obstructive pulmonary disease, unspecified; E78.5 Hyperlipidemia, unspecified; I27.20 Pulmonary hypertension, unspecified; F17.200 Nicotine dependence, unspecified, uncomplicated; E05.90 Thyrotoxicosis, unspecified without thyrotoxic crisis or storm; I42.0 Dilated cardiomyopathy; I49.3 Ventricular premature depolarization; I47.2 Ventricular tachycardia; E11.9 Type 2 diabetes mellitus without complications; R79.1 Abnormal coagulation profile; I11.0 Hypertensive heart disease with heart failure; I50.23 Acute on chronic systolic (congestive) heart failure; E87.6 Hypokalemia; I25.10 Atherosclerotic heart disease of native coronary artery without angina pectoris; H91.90 Unspecified hearing loss, unspecified ear; K29.80 Duodenitis without bleeding; Z95.5 Presence of coronary angioplasty implant and graft; Z95.810 Presence of automatic (implantable) cardiac defibrillator; Z79.84 Long term (current) use of oral hypoglycemic drugs
CPT/HCPCS: 71010; 74177; 80048; 80048 91; 80069; 80076; 81003; 82040; 82948; 83605; 83690; 83735; 83880; 84484; 85014; 85018; 85025; 85025 91; 85027; 85610; 85730; 86850; 86900; 86901; 86920; 87493; 87641; 93005; 94010; 94640; 94640 76; 94799; 97530 GO; 99202; 99281; 99285; C9113; J1815; J2270; J2405; J3475; J3480; J7030; J7050; P9016; P9017; S0028

== ENCOUNTER 2017-05-08 21:30 | Inpatient (IN) | payer OTHER ==
[~2017-05-08] VITALS: Ht 167.6 cm; Wt 79.5 kg
[~2017-05-08 21:30] MED LIST changes: +ALDACTONE25 MG PO; +FUROSEMIDE20 MG PO; +LOPRESSOR25 MG PO; +PROTONIX40 MG PO
[2017-05-08 22:07] LABS: POINT-OF-CARE METER ID UU13113778
[2017-05-08 23:02] LABS: CHLORIDE 107 mEq/L (99-109); SODIUM 141 mEq/L (136-147)
[2017-05-08 23:04] LABS: GLUCOSE 119 mg/dL (70-99)
[2017-05-08 23:05] LABS: ANION GAP 7 MEQ/L (2-14)
[2017-05-08 23:08] LABS: GFR ESTIMATE (CALCULATED) > 59 mL/min/
[2017-05-08 23:09] LABS: UREA NITROGEN (BUN) 11 mg/dL (9-23)
[2017-05-08 23:17] LABS: TROP-I INTERPRETATION POSITIVE
[2017-05-08 23:18] LABS: TROPONIN-I 0.73 ng/mL (0.0-0.30)
[2017-05-08 23:23] LABS: HEMATOCRIT 29.4 % (38.0-50.0); MCH 30.3 PG (29.0-34.0); MCV 91.9 FL (86-99); RBC DIS.WIDTH-CV 15.3 % (11.8-14.6); RBC DIS.WIDTH-SD 49.1 % (39-53); WHITE BLOOD COUNT 15.7 K/uL (4.1-10.2)
[2017-05-08 23:26] LABS: PLATELET COUNT 217 K/uL (156-360)
[2017-05-09 00:38] LABS: INTER. NORMALIZED RATIO 1.1; PROTHROMBIN TIME 11.8 SEC (10.2-12.9)
[2017-05-09 00:41] LABS: PTT 22.1 SEC (25-37)
[2017-05-09 01:16] LABS: ADD MIUA? NO; BILIRUBIN NEGATIVE; BLOOD NEGATIVE; COLOR YELLOW ((YELLOW)); GLUCOSE (STRIP) NEGATIVE; KETONES NEGATIVE; LEUKOCYTES NEGATIVE; NITRITE NEGATIVE; PROTEIN (STRIP) NEGATIVE; SPECIFIC GRAVITY 1.014 (1.000-1.030); UCUL ADDED? NO; UROBILINOGEN 0.2 MG/DL (0.2-1.0)
[2017-05-09 05:20] LABS: HEMATOCRIT 27.7 % (38.0-50.0); MCH 30.4 PG (29.0-34.0); MCHC 33.2 G/DL (30.0-36.0); MCV 91.4 FL (86-99); MEAN PLAT.VOLUME 12.4 uM^3 (9.0-12.4); PLATELET COUNT 183 K/uL (156-360); RBC DIS.WIDTH-CV 15.5 % (11.8-14.6); RBC DIS.WIDTH-SD 49.8 % (39-53); RED BLOOD COUNT 3.03 M/uL (4.00-5.50); WHITE BLOOD COUNT 15.2 K/uL (4.1-10.2)
[2017-05-09 05:29] LABS: INTER. NORMALIZED RATIO 1.2; PROTHROMBIN TIME 12.7 SEC (10.2-12.9)
[2017-05-09 05:35] LABS: CHLORIDE 110 mEq/L (99-109); POTASSIUM 3.3 mEq/L (3.7-5.4); SODIUM 141 mEq/L (136-147)
[2017-05-09 05:37] LABS: GLUCOSE 126 mg/dL (70-99)
[2017-05-09 05:38] LABS: ANION GAP 7 MEQ/L (2-14)
[2017-05-09 05:39] LABS: TOTAL BILIRUBIN 0.5 mg/dL (0.0-1.0)
[2017-05-09 05:41] LABS: ALKALINE PHOSPHATASE 46 IU/L (3-129); GFR ESTIMATE (CALCULATED) > 59 mL/min/
[2017-05-09 05:42] LABS: PTT 122.7 SEC (25-37); UREA NITROGEN (BUN) 10 mg/dL (9-23)
[2017-05-09 05:43] LABS: TROP-I INTERPRETATION POSITIVE
[2017-05-09 05:44] LABS: TROPONIN-I 0.98 ng/mL (0.0-0.30)
[2017-05-09 10:10] VITALS: BP 110/58
[2017-05-09 11:56] LABS: POINT-OF-CARE METER ID UU13113781
[2017-05-09 12:00] VITALS: BP 135/84
[2017-05-09 13:18] LABS: TROP-I INTERPRETATION POSITIVE; TROPONIN-I 0.85 ng/mL (0.0-0.30)
[2017-05-09 13:59] LABS: Estimated Average Glucose 137 mg/dL (70-123); HEMOGLOBIN A1c (GLYCOHEMOGLOB) 6.4 % HGB (Below 5.7)
[2017-05-09 14:45] VITALS: BP 116/71
[2017-05-09 16:39] LABS: ANION GAP 7 MEQ/L (2-14); CHLORIDE 106 MEQ/L (99-109); GFR ESTIMATE (CALCULATED) > 59 mL/min/; GLUCOSE 127 mg/dL (70-99); POTASSIUM 3.7 MEQ/L (3.7-5.4); SAMPLE HEMOLYSIS CHECK 0; SAMPLE ICTERIC CHECK 0; SAMPLE LIPEMIA CHECK 0; SODIUM 140 MEQ/L (136-147); UREA NITROGEN (BUN) 9 mg/dL (9-23)
[2017-05-09 17:06] LABS: POINT-OF-CARE METER ID UU13113781
[2017-05-09 19:00] VITALS: BP 152/78
[2017-05-09 21:29] LABS: POINT-OF-CARE METER ID UU14314088
[2017-05-09 23:00] VITALS: BP 90/52
[2017-05-10 03:30] VITALS: BP 105/53
[2017-05-10 05:52] LABS: HEMATOCRIT 26.2 % (38.0-50.0); MCH 30.1 PG (29.0-34.0); MCHC 32.4 G/DL (30.0-36.0); MCV 92.9 FL (86-99); MEAN PLAT.VOLUME 11.7 uM^3 (9.0-12.4); PLATELET COUNT 193 K/uL (156-360); RBC DIS.WIDTH-CV 15.6 % (11.8-14.6); RBC DIS.WIDTH-SD 52.3 % (39-53); RED BLOOD COUNT 2.82 M/uL (4.00-5.50); WHITE BLOOD COUNT 10.3 K/uL (4.1-10.2)
[2017-05-10 06:37] LABS: ANION GAP 5 MEQ/L (2-14); CHLORIDE 108 MEQ/L (99-109); GFR ESTIMATE (CALCULATED) > 59 mL/min/; GLUCOSE 123 mg/dL (70-99); POTASSIUM 4.4 MEQ/L (3.7-5.4); SAMPLE HEMOLYSIS CHECK 0; SAMPLE ICTERIC CHECK 0; SAMPLE LIPEMIA CHECK 0; SODIUM 141 MEQ/L (136-147); UREA NITROGEN (BUN) 7 mg/dL (9-23)
[2017-05-10 07:48] LABS: POINT-OF-CARE METER ID UU14174216
[2017-05-10 08:02] VITALS: BP 113/58
[2017-05-10] MEDS ORDERED: ASPIR-LOW81 MG PO (11:47)
[2017-05-10 12:19] VITALS: BP 106/68
[2017-05-10 12:22] LABS: POINT-OF-CARE METER ID UU13113698
[2017-05-10 14:03] LABS: HEMATOCRIT 32.1 % (38.0-50.0); MCV 95.3 FL (86-99)
== END 2017-05-10 16:41 | DRG 280 ==
LOC: EME 21:30 → 4EAST 05-09 04:11 → EDOF 05-09 04:11 → ENRESERV 05-09 04:12 → 4EAST 05-09 09:59 → ENPENDDIS 05-10 16:30 → 4EAST 05-10 16:41
PROVIDERS: Hospitalist; Internal Medicine; Internal Medicine Cardiovascular Disease
DX: I21.A1 Myocardial infarction type 2 (principal); K25.4 Chronic or unspecified gastric ulcer with hemorrhage; J44.1 Chronic obstructive pulmonary disease with (acute) exacerbation; D62 Acute posthemorrhagic anemia; I48.0 Paroxysmal atrial fibrillation; I11.0 Hypertensive heart disease with heart failure; I50.9 Heart failure, unspecified; I27.20 Pulmonary hypertension, unspecified; I25.10 Atherosclerotic heart disease of native coronary artery without angina pectoris; I25.5 Ischemic cardiomyopathy; D72.829 Elevated white blood cell count, unspecified; E78.5 Hyperlipidemia, unspecified; E11.9 Type 2 diabetes mellitus without complications; K29.80 Duodenitis without bleeding; F17.210 Nicotine dependence, cigarettes, uncomplicated; I25.2 Old myocardial infarction; Z79.01 Long term (current) use of anticoagulants; Z79.82 Long term (current) use of aspirin; Z79.84 Long term (current) use of oral hypoglycemic drugs; Z79.02 Long term (current) use of antithrombotics/antiplatelets; Z95.5 Presence of coronary angioplasty implant and graft; Z95.810 Presence of automatic (implantable) cardiac defibrillator
CPT/HCPCS: 71020; 74176; 80048; 80048 91; 80053; 81003; 82948; 83036; 84484; 85014; 85018; 85027; 85610; 85730; 93005; 94640; 94640 76; 94760; 94799; 99202; 99281; 99285; J1815; J7030

== ENCOUNTER 2017-06-14 20:05 | Emergency (ER) | payer OTHER ==
[~2017-06-14] VITALS: Ht 167.6 cm; Wt 76.7 kg
[~2017-06-14 20:05] MED LIST changes: +ATORVASTATIN CA80 MG PO; +EZETIMIBE10 MG PO; +LISINOPRIL5 MG PO; +METOPROLOL TART25 MG PO; +RANEXA1000 MG PO
[2017-06-14 21:06] LABS: MCH 26.9 PG (29.0-34.0); MCHC 31.8 G/DL (30.0-36.0); MCV 84.6 FL (86-99); MEAN PLAT.VOLUME 11.4 uM^3 (9.0-12.4); PLATELET COUNT 267 K/uL (156-360); RBC DIS.WIDTH-CV 17.8 % (11.8-14.6); WHITE BLOOD COUNT 10.4 K/uL (4.1-10.2)
[2017-06-14 21:20] LABS: CHLORIDE 107 mEq/L (99-109); POTASSIUM 4.3 mEq/L (3.7-5.4); SODIUM 139 mEq/L (136-147)
[2017-06-14 21:21] LABS: GLUCOSE 120 mg/dL (70-99)
[2017-06-14 21:23] LABS: ANION GAP 8 MEQ/L (2-14)
[2017-06-14 21:25] LABS: GFR ESTIMATE (CALCULATED) > 59 mL/min/
[2017-06-14 21:26] LABS: UREA NITROGEN (BUN) 12 mg/dL (9-23)
[2017-06-14 21:30] LABS: TROP-I INTERPRETATION NEGATIVE; TROPONIN-I 0.06 ng/mL (0.0-0.30)
[2017-06-14 22:53] LABS: TROP-I INTERPRETATION NEGATIVE; TROPONIN-I 0.06 ng/mL (0.0-0.30)
[2017-06-14 23:25] VITALS: BP 116/73
== END 2017-06-14 23:43 | disposition home or self-care (01) ==
LOC: EME → EDBD 20:05 → EME 23:43
PROVIDERS: Emergency Medicine
DX: R07.9 Chest pain, unspecified (principal); I11.0 Hypertensive heart disease with heart failure; I50.9 Heart failure, unspecified; I25.2 Old myocardial infarction; Z72.0 Tobacco use
CPT/HCPCS: 71020; 80048; 84484; 85027; 93005; 99281; 99284

== ENCOUNTER 2017-07-04 17:27 | Inpatient (IN) | payer OTHER ==
[~2017-07-04] VITALS: Ht 167.6 cm; Wt 77.9 kg
[~2017-07-04 17:27] MED LIST changes: +LISINOPRIL20 MG PO; -LISINOPRIL5 MG PO
[2017-07-04 19:40] LABS: CHLORIDE 102 mEq/L (99-109); INTER. NORMALIZED RATIO 1.1; POTASSIUM 4.2 mEq/L (3.7-5.4); PROTHROMBIN TIME 12.4 SEC (10.2-12.9); SODIUM 142 mEq/L (136-147)
[2017-07-04 19:41] LABS: GLUCOSE 129 mg/dL (70-99)
[2017-07-04 19:42] LABS: PTT 24.7 SEC (25-37)
[2017-07-04 19:43] LABS: ANION GAP 14 MEQ/L (2-14)
[2017-07-04 19:45] LABS: GFR ESTIMATE (CALCULATED) > 59 mL/min/
[2017-07-04 19:46] LABS: UREA NITROGEN (BUN) 11 mg/dL (9-23)
[2017-07-04 19:53] LABS: TROP-I INTERPRETATION NEGATIVE; TROPONIN-I 0.05 ng/mL (0.0-0.30)
[2017-07-04 19:56] LABS: BASOPHIL COUNT 0.1 K/uL (0-0.1); EOSINOPHIL (%) 0.9 % (0-5); EOSINOPHIL COUNT 0.1 K/uL (0-0.3); HEMATOCRIT 32.1 % (38.0-50.0); IMMATURE GRANULOCYTE (%) 0.5 % (0.0-0.7); IMMATURE GRANULOCYTE COUNT 0.1 K/uL; INSTRUMENT ABS NEUTROPHIL CT 10.7 K/uL; LYMPHOCYTE COUNT 2.7 K/uL (1.0-2.8); MCH 26.5 PG (29.0-34.0); MCHC 31.8 G/DL (30.0-36.0); MCV 83.4 FL (86-99); MEAN PLAT.VOLUME 13.2 uM^3 (9.0-12.4); MONOCYTE (%) 12.2 % (3-12); MONOCYTE COUNT 1.9 K/uL (0-0.8); NEUTROPHIL (%) 68.7 % (45-76); NEUTROPHIL COUNT 10.7 K/uL (1.8-6.4); PLATELET COUNT 231 K/uL (156-360); RBC DIS.WIDTH-CV 18.2 % (11.8-14.6); RBC DIS.WIDTH-SD 54.9 % (39-53); RED BLOOD COUNT 3.85 M/uL (4.00-5.50); WHITE BLOOD COUNT 15.6 K/uL (4.1-10.2)
[2017-07-04] MEDS ORDERED: LOW DOSE ASPIRI81 M1 PO (23:06)
[2017-07-04] MEDS ORDERED: CLOPIDOGREL75 MG PO (23:08)
[2017-07-04] MEDS ORDERED: MULTIVITAMIN1 EAC2 PO (23:09)
[2017-07-04] MEDS ORDERED: XOPENEX1.25 MG/0. IH (23:10)
[2017-07-04] MEDS ORDERED: NITROSTAT0.4 MG SL (23:11)
[2017-07-04] MEDS ORDERED: SOTALOL120 MG PO (23:12)
[2017-07-04] MEDS ORDERED: ADVAIR HFA120 INHALA IH (23:13)
[2017-07-04] MEDS ORDERED: LASIX20 MG PO (23:14)
[2017-07-05 02:38] LABS: TROP-I INTERPRETATION NEGATIVE; TROPONIN-I 0.05 ng/mL (0.0-0.30)
[2017-07-05 04:29] VITALS: BP 123/75
[2017-07-05 07:04] VITALS: BP 128/58
[2017-07-05 09:01] LABS: POINT-OF-CARE METER ID UU14174225
[2017-07-05 10:44] LABS: TROP-I INTERPRETATION NEGATIVE; TROPONIN-I 0.03 ng/mL (0.0-0.30)
[2017-07-05 10:56] LABS: HEMATOCRIT 30.6 % (38.0-50.0); MCH 26.4 PG (29.0-34.0); MCHC 31.4 G/DL (30.0-36.0); MCV 84.1 FL (86-99); MEAN PLAT.VOLUME 12.4 uM^3 (9.0-12.4); PLATELET COUNT 240 K/uL (156-360); RBC DIS.WIDTH-CV 17.9 % (11.8-14.6); RBC DIS.WIDTH-SD 54.8 % (39-53); RED BLOOD COUNT 3.64 M/uL (4.00-5.50); WHITE BLOOD COUNT 11.2 K/uL (4.1-10.2)
[2017-07-05 11:00] LABS: ANION GAP 11 MEQ/L (2-14); CHLORIDE 100 MEQ/L (99-109); POTASSIUM 4.6 MEQ/L (3.7-5.4); SAMPLE HEMOLYSIS CHECK 0; SAMPLE ICTERIC CHECK 0; SAMPLE LIPEMIA CHECK 0; SODIUM 136 MEQ/L (136-147)
[2017-07-05 11:06] LABS: GFR ESTIMATE (CALCULATED) > 59 mL/min/; UREA NITROGEN (BUN) 13 mg/dL (9-23)
[2017-07-05 11:07] VITALS: BP 116/73
[2017-07-05 11:07] LABS: GLUCOSE 302 mg/dL (70-99)
[2017-07-05 11:14] LABS: POINT-OF-CARE METER ID UU14174225
[2017-07-05] MEDS ORDERED: SPIRIVA RESPIMAT4 GM IH (13:11)
[2017-07-05] MEDS ORDERED: RANEXA1000 MG PO (13:12)
[2017-07-05] MEDS ORDERED: EZETIMIBE10 MG PO (13:12)
[2017-07-05] MEDS ORDERED: PANTOPRAZOLE SO40 MG PO (13:42)
[2017-07-05] MEDS ORDERED: XOPENEX1.25 MG/0. IH (14:58)
[2017-07-05] MEDS ORDERED: FOLIC ACID0.4 MG PO (15:02)
[2017-07-05] MEDS ORDERED: PLAVIX75 MG PO (15:02)
[2017-07-05] MEDS ORDERED: VITAMIN B125000 MCG PO (15:03)
[2017-07-05 15:06] VITALS: BP 111/57
[2017-07-05] MEDS ORDERED: COLACE100 MG PO (15:35)
[2017-07-05 16:11] LABS: POINT-OF-CARE METER ID UU14174225
[2017-07-05 20:02] VITALS: BP 105/46
[2017-07-05 21:20] LABS: POINT-OF-CARE METER ID UU14174225
[2017-07-06 00:13] VITALS: BP 96/56
[2017-07-06 03:50] VITALS: BP 92/53
[2017-07-06 07:20] LABS: HEMATOCRIT 28.6 % (38.0-50.0); MCH 26.4 PG (29.0-34.0); MCHC 32.2 G/DL (30.0-36.0); MCV 81.9 FL (86-99); MEAN PLAT.VOLUME 11.9 uM^3 (9.0-12.4); PLATELET COUNT 247 K/uL (156-360); RBC DIS.WIDTH-CV 17.8 % (11.8-14.6); RBC DIS.WIDTH-SD 52.7 % (39-53); RED BLOOD COUNT 3.49 M/uL (4.00-5.50)
[2017-07-06 07:30] VITALS: BP 110/62
[2017-07-06 07:47] LABS: ANION GAP 7 MEQ/L (2-14); CHLORIDE 101 MEQ/L (99-109); GFR ESTIMATE (CALCULATED) > 59 mL/min/; GLUCOSE 204 mg/dL (70-99); POTASSIUM 4.4 MEQ/L (3.7-5.4); SAMPLE HEMOLYSIS CHECK 0; SAMPLE ICTERIC CHECK 0; SAMPLE LIPEMIA CHECK 0; SODIUM 136 MEQ/L (136-147); UREA NITROGEN (BUN) 20 mg/dL (9-23)
[2017-07-06] MEDS ORDERED: PREDNISONE10 MG PO (10:55)
[2017-07-06] MEDS ORDERED: AZITHROMYCIN500 M1 PO (10:55)
[2017-07-06 11:05] VITALS: BP 108/68
[2017-07-06 12:11] LABS: POINT-OF-CARE METER ID UU14174225
== END 2017-07-06 12:35 | disposition home health service (06) | DRG 191 ==
LOC: EME → EDBD 17:27 → EME 17:27 → 5SOUTH 07-05 01:35 → EDOF 07-05 01:35 → ENRESERV 07-05 01:39 → 5SOUTH 07-05 03:10
PROVIDERS: Emergency Medicine; Hospitalist; Physician Assistant
DX: J44.1 Chronic obstructive pulmonary disease with (acute) exacerbation (principal); I50.22 Chronic systolic (congestive) heart failure; E11.9 Type 2 diabetes mellitus without complications; I11.0 Hypertensive heart disease with heart failure; I25.2 Old myocardial infarction; I25.5 Ischemic cardiomyopathy; I25.10 Atherosclerotic heart disease of native coronary artery without angina pectoris; D64.9 Anemia, unspecified; E78.5 Hyperlipidemia, unspecified; I48.0 Paroxysmal atrial fibrillation; R09.02 Hypoxemia; Z79.01 Long term (current) use of anticoagulants; Z79.4 Long term (current) use of insulin; F17.210 Nicotine dependence, cigarettes, uncomplicated; K27.7 Chronic peptic ulcer, site unspecified, without hemorrhage or perforation; Z95.810 Presence of automatic (implantable) cardiac defibrillator; Z79.82 Long term (current) use of aspirin; Z80.3 Family history of malignant neoplasm of breast; D72.829 Elevated white blood cell count, unspecified; Z95.5 Presence of coronary angioplasty implant and graft
CPT/HCPCS: 71020; 71275; 80048; 82948; 83605; 84484; 85025; 85027; 85610; 85730; 87040; 87070; 87205; 87502; 93005; 94640; 94640 76; 94799; 99202; 99281; 99285; J0456; J1815; J2920; J2930

== ENCOUNTER 2017-07-12 22:05 | Emergency (ER) | payer OTHER ==
[~2017-07-12] VITALS: Ht 167.6 cm; Wt 81.0 kg
[~2017-07-12 22:05] MED LIST changes: +CLOPIDOGREL75 MG PO; +COLACE100 MG PO; +FOLIC ACID0.4 MG PO; +LASIX20 MG PO; +LOW DOSE ASPIRI81 M1 PO; +MULTIVITAMIN1 EAC2 PO; +PANTOPRAZOLE SO40 MG PO; +VITAMIN B125000 MCG PO; +XOPENEX1.25 MG/0. IH
[2017-07-12 22:43] LABS: HEMATOCRIT 29.8 % (38.0-50.0); MCH 26.1 PG (29.0-34.0); MCHC 31.9 G/DL (30.0-36.0); MCV 81.9 FL (86-99); MEAN PLAT.VOLUME 11.7 uM^3 (9.0-12.4); PLATELET COUNT 289 K/uL (156-360); RBC DIS.WIDTH-SD 54.1 % (39-53); RED BLOOD COUNT 3.64 M/uL (4.00-5.50); WHITE BLOOD COUNT 13.5 K/uL (4.1-10.2)
[2017-07-12 23:00] LABS: CHLORIDE 104 mEq/L (99-109); POTASSIUM 4.2 mEq/L (3.7-5.4); SODIUM 138 mEq/L (136-147)
[2017-07-12 23:03] LABS: GLUCOSE 208 mg/dL (70-99)
[2017-07-12 23:04] LABS: ANION GAP 10 MEQ/L (2-14)
[2017-07-12 23:05] LABS: TOTAL BILIRUBIN 0.4 mg/dL (0.0-1.0); TROP-I INTERPRETATION NEGATIVE; TROPONIN-I 0.05 ng/mL (0.0-0.30)
[2017-07-12 23:06] LABS: ALKALINE PHOSPHATASE 40 IU/L (3-129); GFR ESTIMATE (CALCULATED) > 59 mL/min/ (58.99-99999)
[2017-07-12 23:07] LABS: UREA NITROGEN (BUN) 12 mg/dL (9-23)
[2017-07-12 23:10] LABS: LIPASE 18 U/L (1.0-51.0)
[2017-07-13 00:17] LABS: ADD MIUA? NO; BILIRUBIN NEGATIVE; BLOOD NEGATIVE; COLOR YELLOW ((YELLOW)); GLUCOSE (STRIP) NEGATIVE; KETONES NEGATIVE; LEUKOCYTES NEGATIVE; NITRITE NEGATIVE; PROTEIN (STRIP) 30; SPECIFIC GRAVITY 1.015 (1.000-1.030); UCUL ADDED? NO; UROBILINOGEN 0.2 MG/DL (0.2-1.0)
[2017-07-13] MEDS ORDERED: ZITHROMAX Z-PA250 MG PO (03:21)
[2017-07-13 03:35] VITALS: BP 125/87
== END 2017-07-13 03:50 | disposition home or self-care (01) ==
LOC: EME 22:05
PROVIDERS: Emergency Medicine
DX: R10.9 Unspecified abdominal pain (principal); J44.0 Chronic obstructive pulmonary disease with (acute) lower respiratory infection; J20.9 Acute bronchitis, unspecified; R73.9 Hyperglycemia, unspecified; D64.9 Anemia, unspecified; M48.061 Spinal stenosis, lumbar region without neurogenic claudication; I10 Essential (primary) hypertension; I25.2 Old myocardial infarction; Z72.0 Tobacco use; Z79.82 Long term (current) use of aspirin; Z85.9 Personal history of malignant neoplasm, unspecified
CPT/HCPCS: 71010; 74177; 80053; 81003; 83690; 84484; 85027; 93005; 99281; 99285

== ENCOUNTER 2017-08-01 22:01 | Observation (INO) | payer OTHER ==
[~2017-08-01] VITALS: Ht 167.6 cm; Wt 72.9 kg
[~2017-08-01 22:01] MED LIST changes: +ZITHROMAX Z-PA250 MG PO
[2017-08-01 23:18] LABS: BASOPHIL (%) 0.2 % (0-1); EOSINOPHIL (%) 0.2 % (0-5); HEMATOCRIT 32.5 % (38.0-50.0); HEMOGLOBIN 10.1 G/DL (12.5-16.6); IMMATURE GRANULOCYTE (%) 0.8 % (0.0-0.7); LYMPHOCYTE (%) 24.8 % (15-42); LYMPHOCYTE COUNT 2.5 K/uL (1.0-2.8); MCH 23.9 PG (29.0-34.0); MCHC 31.1 G/DL (30.0-36.0); MONOCYTE COUNT 0.8 K/uL (0-0.8); NEUTROPHIL COUNT 6.6 K/uL (1.8-6.4); PLATELET COUNT 271 K/uL (156-360); RBC DIS.WIDTH-CV 19.1 % (11.8-14.6); RBC DIS.WIDTH-SD 52.4 % (39-53); RED BLOOD COUNT 4.22 M/uL (4.00-5.50); WHITE BLOOD COUNT 10.1 K/uL (4.1-10.2)
[2017-08-01 23:22] LABS: ALBUMIN 3.8 g/dL (3.2-4.8); CHLORIDE 99 mEq/L (99-109); POTASSIUM 5.2 mEq/L (3.7-5.4); SODIUM 134 mEq/L (136-147)
[2017-08-01 23:24] LABS: GLUCOSE 138 mg/dL (70-99); TOTAL PROTEIN 6.8 g/dL (6.4-8.3)
[2017-08-01 23:26] LABS: TOTAL BILIRUBIN 0.5 mg/dL (0.0-1.0)
[2017-08-01 23:28] LABS: ALKALINE PHOSPHATASE 45 IU/L (3-129); CREATININE 1.1 mg/dL (0.6-1.3); GFR ESTIMATE (CALCULATED) > 59 mL/min/ (58.99-99999)
[2017-08-01 23:29] LABS: AST (GOT) 11 IU/L (2-34); UREA NITROGEN (BUN) 17 mg/dL (9-23)
[2017-08-01 23:30] LABS: DIRECT BILIRUBIN 0.2 mg/dL (0.0-0.3)
[2017-08-01 23:31] LABS: ALT (GPT) 13 IU/L (3-49); LIPASE 17 U/L (1.0-51.0)
[2017-08-01 23:33] LABS: TROP-I INTERPRETATION NEGATIVE; TROPONIN-I 0.06 ng/mL (0.0-0.30)
[2017-08-02 06:58] LABS: HEMATOCRIT 30.4 % (38.0-50.0); HEMOGLOBIN 9.6 G/DL (12.5-16.6); MCH 23.8 PG (29.0-34.0); MCHC 31.6 G/DL (30.0-36.0); MCV 75.4 FL (86-99); PLATELET COUNT 264 K/uL (156-360); RBC DIS.WIDTH-CV 18.9 % (11.8-14.6); RBC DIS.WIDTH-SD 51.8 % (39-53); RED BLOOD COUNT 4.03 M/uL (4.00-5.50); WHITE BLOOD COUNT 7.6 K/uL (4.1-10.2)
[2017-08-02 07:34] LABS: TROP-I INTERPRETATION NEGATIVE; TROPONIN-I 0.06 ng/mL (0.0-0.30)
[2017-08-02 07:48] LABS: CHLORIDE 101 mEq/L (99-109); POTASSIUM 5.3 mEq/L (3.7-5.4); SODIUM 134 mEq/L (136-147)
[2017-08-02 07:50] LABS: GLUCOSE 244 mg/dL (70-99)
[2017-08-02 07:53] LABS: CREATININE 1.1 mg/dL (0.6-1.3); GFR ESTIMATE (CALCULATED) > 59 mL/min/ (58.99-99999)
[2017-08-02 07:54] LABS: UREA NITROGEN (BUN) 20 mg/dL (9-23)
[2017-08-02 10:00] VITALS: BP 122/79
[2017-08-02] MEDS ORDERED: PREDNISONE10 MG PO (11:09)
== END 2017-08-02 11:12 | disposition home or self-care (01) ==
LOC: EME → EDBD 22:01 → EME 22:01 → EDOF 08-02 04:08 → ENRESERV 08-02 04:10 → CANRESERV 08-02 06:00 → EDOF 08-02 11:12
PROVIDERS: Emergency Medicine; Hospitalist
DX: R07.9 Chest pain, unspecified (principal); J44.0 Chronic obstructive pulmonary disease with (acute) lower respiratory infection; J20.9 Acute bronchitis, unspecified; J44.1 Chronic obstructive pulmonary disease with (acute) exacerbation; F17.200 Nicotine dependence, unspecified, uncomplicated; I25.10 Atherosclerotic heart disease of native coronary artery without angina pectoris; I25.2 Old myocardial infarction; Z95.810 Presence of automatic (implantable) cardiac defibrillator; Z95.5 Presence of coronary angioplasty implant and graft; E11.9 Type 2 diabetes mellitus without complications; E78.5 Hyperlipidemia, unspecified; I48.0 Paroxysmal atrial fibrillation; I25.5 Ischemic cardiomyopathy; I27.20 Pulmonary hypertension, unspecified; E05.90 Thyrotoxicosis, unspecified without thyrotoxic crisis or storm; D64.9 Anemia, unspecified; I10 Essential (primary) hypertension; Z87.19 Personal history of other diseases of the digestive system; Z79.82 Long term (current) use of aspirin; Z79.84 Long term (current) use of oral hypoglycemic drugs
CPT/HCPCS: 71046; 80048; 80076; 83690; 84484; 85025; 85027; 93005; 94640; 94640 76; 99202; 99281; 99285; G0378; J1100; J1644; J2930

== ENCOUNTER 2017-08-06 19:35 | Emergency (ER) | payer OTHER ==
[~2017-08-06] VITALS: Ht 167.6 cm; Wt 78.3 kg
[2017-08-06 20:42] LABS: HEMATOCRIT 34.7 % (38.0-50.0); HEMOGLOBIN 10.8 G/DL (12.5-16.6); MCH 23.8 PG (29.0-34.0); MCHC 31.1 G/DL (30.0-36.0); MCV 76.6 FL (86-99); RBC DIS.WIDTH-CV 19.1 % (11.8-14.6); RBC DIS.WIDTH-SD 52.4 % (39-53); RED BLOOD COUNT 4.53 M/uL (4.00-5.50)
[2017-08-06 20:47] LABS: ALBUMIN 4.2 g/dL (3.2-4.8); CHLORIDE 98 mEq/L (99-109); POTASSIUM 5.2 mEq/L (3.7-5.4); SODIUM 135 mEq/L (136-147)
[2017-08-06 20:49] LABS: GLUCOSE 234 mg/dL (70-99); TOTAL PROTEIN 7.2 g/dL (6.4-8.3)
[2017-08-06 20:51] LABS: TOTAL BILIRUBIN 0.5 mg/dL (0.0-1.0)
[2017-08-06 20:53] LABS: ALKALINE PHOSPHATASE 43 IU/L (3-129); CREATININE 1.2 mg/dL (0.6-1.3); GFR ESTIMATE (CALCULATED) > 59 mL/min/ (58.99-99999)
[2017-08-06 20:54] LABS: UREA NITROGEN (BUN) 16 mg/dL (9-23)
[2017-08-06 20:55] LABS: AST (GOT) 12 IU/L (2-34)
[2017-08-06 20:56] LABS: ALT (GPT) 14 IU/L (3-49)
[2017-08-06 21:02] LABS: TROP-I INTERPRETATION NEGATIVE; TROPONIN-I 0.03 ng/mL (0.0-0.30)
[2017-08-06 21:25] LABS: HEMATOLOGY COMMENT 1 SN; PLAT.SUFFICIENCY ADEQUATE; PLATELET COUNT 211 K/uL (156-360)
[2017-08-06 23:08] VITALS: BP 118/77
== END 2017-08-06 23:16 | disposition home or self-care (01) ==
LOC: EME 19:35
PROVIDERS: Physician Assistant
DX: F12.10 Cannabis abuse, uncomplicated (principal); E11.65 Type 2 diabetes mellitus with hyperglycemia; J44.9 Chronic obstructive pulmonary disease, unspecified; I11.0 Hypertensive heart disease with heart failure; I50.9 Heart failure, unspecified; K21.9 Gastro-esophageal reflux disease without esophagitis; I25.2 Old myocardial infarction; F17.200 Nicotine dependence, unspecified, uncomplicated; Z79.82 Long term (current) use of aspirin; Z86.73 Personal history of transient ischemic attack (TIA), and cerebral infarction without residual deficits; Z85.9 Personal history of malignant neoplasm, unspecified
CPT/HCPCS: 70450; 71046; 80053; 84484; 85027; 93005; 99281; 99285

== ENCOUNTER 2017-08-19 21:04 | Emergency (ER) | payer OTHER ==
[~2017-08-19] VITALS: Ht 167.6 cm; Wt 52.1 kg
[2017-08-19 21:35] LABS: BASOPHIL (%) 0.2 % (0-1); EOSINOPHIL (%) 0 % (0-5); HEMATOCRIT 34.2 % (38.0-50.0); HEMOGLOBIN 10.4 G/DL (12.5-16.6); IMMATURE GRANULOCYTE (%) 0.5 % (0.0-0.7); LYMPHOCYTE (%) 25.5 % (15-42); LYMPHOCYTE COUNT 2.2 K/uL (1.0-2.8); MCHC 30.4 G/DL (30.0-36.0); MCV 75.5 FL (86-99); MONOCYTE (%) 5.6 % (3-12); MONOCYTE COUNT 0.5 K/uL (0-0.8); NEUTROPHIL (%) 68.2 % (45-76); NEUTROPHIL COUNT 5.9 K/uL (1.8-6.4); PLATELET COUNT 267 K/uL (156-360); RBC DIS.WIDTH-CV 19.2 % (11.8-14.6); RBC DIS.WIDTH-SD 52.2 % (39-53); RED BLOOD COUNT 4.53 M/uL (4.00-5.50); WHITE BLOOD COUNT 8.6 K/uL (4.1-10.2)
[2017-08-19 21:49] LABS: ALBUMIN 3.8 g/dL (3.2-4.8); CHLORIDE 105 mEq/L (99-109); POTASSIUM 4.4 mEq/L (3.7-5.4)
[2017-08-19 21:50] LABS: MAGNESIUM 1.7 mg/dL (1.3-2.7); SODIUM 138 mEq/L (136-147)
[2017-08-19 21:52] LABS: GLUCOSE 207 mg/dL (70-99); TOTAL PROTEIN 6.4 g/dL (6.4-8.3)
[2017-08-19 21:54] LABS: TOTAL BILIRUBIN 0.4 mg/dL (0.0-1.0)
[2017-08-19 21:55] LABS: ALKALINE PHOSPHATASE 40 IU/L (3-129)
[2017-08-19 21:56] LABS: CREATININE 0.9 mg/dL (0.6-1.3); GFR ESTIMATE (CALCULATED) > 59 mL/min/ (58.99-99999)
[2017-08-19 21:57] LABS: AST (GOT) 9 IU/L (2-34); UREA NITROGEN (BUN) 13 mg/dL (9-23)
[2017-08-19 21:59] LABS: ALT (GPT) 14 IU/L (3-49)
[2017-08-19 22:03] LABS: TROP-I INTERPRETATION NEGATIVE; TROPONIN-I 0.04 ng/mL (0.0-0.30)
[2017-08-19] MEDS ORDERED: LEVAQUIN750 MG PO (23:05)
[2017-08-19] MEDS ORDERED: PREDNISONE20 MG PO (23:07)
[2017-08-19 23:45] VITALS: BP 124/79
== END 2017-08-19 23:45 | disposition home or self-care (01) ==
LOC: EME → EDBD 21:04 → EME 23:45
PROVIDERS: Emergency Medicine
DX: J44.0 Chronic obstructive pulmonary disease with (acute) lower respiratory infection (principal); J18.9 Pneumonia, unspecified organism; J44.1 Chronic obstructive pulmonary disease with (acute) exacerbation; F17.200 Nicotine dependence, unspecified, uncomplicated; E11.9 Type 2 diabetes mellitus without complications; Z79.84 Long term (current) use of oral hypoglycemic drugs; I11.0 Hypertensive heart disease with heart failure; I50.9 Heart failure, unspecified; I25.2 Old myocardial infarction; K21.9 Gastro-esophageal reflux disease without esophagitis; Z86.73 Personal history of transient ischemic attack (TIA), and cerebral infarction without residual deficits
CPT/HCPCS: 71046; 80053; 83735; 83880; 84484; 85025; 93005; 99281; 99285; J7512; J7644

== ENCOUNTER 2017-08-22 21:12 | Emergency (ER) | payer OTHER ==
[~2017-08-22] VITALS: Ht 167.6 cm; Wt 74.8 kg
[~2017-08-22 21:12] MED LIST changes: +LEVAQUIN750 MG PO; +PREDNISONE20 MG PO
[2017-08-22 22:06] LABS: HEMATOCRIT 33.9 % (38.0-50.0); HEMOGLOBIN 10.6 G/DL (12.5-16.6); MCH 23.3 PG (29.0-34.0); MCHC 31.3 G/DL (30.0-36.0); MCV 74.5 FL (86-99); RBC DIS.WIDTH-CV 19.1 % (11.8-14.6); RBC DIS.WIDTH-SD 51.6 % (39-53); RED BLOOD COUNT 4.55 M/uL (4.00-5.50); WHITE BLOOD COUNT 10.1 K/uL (4.1-10.2)
[2017-08-22 22:12] LABS: ALBUMIN 3.8 g/dL (3.2-4.8); CHLORIDE 101 mEq/L (99-109); MAGNESIUM 1.6 mg/dL (1.3-2.7); POTASSIUM 3.9 mEq/L (3.7-5.4); SODIUM 138 mEq/L (136-147)
[2017-08-22 22:14] LABS: GLUCOSE 134 mg/dL (70-99); TOTAL PROTEIN 6.4 g/dL (6.4-8.3)
[2017-08-22 22:17] LABS: TOTAL BILIRUBIN 0.6 mg/dL (0.0-1.0)
[2017-08-22 22:18] LABS: ALKALINE PHOSPHATASE 35 IU/L (3-129); CREATININE 0.9 mg/dL (0.6-1.3); GFR ESTIMATE (CALCULATED) > 59 mL/min/ (58.99-99999)
[2017-08-22 22:19] LABS: UREA NITROGEN (BUN) 15 mg/dL (9-23)
[2017-08-22 22:20] LABS: AST (GOT) 11 IU/L (2-34)
[2017-08-22 22:21] LABS: ALT (GPT) 14 IU/L (3-49)
[2017-08-22 22:30] LABS: TROP-I INTERPRETATION NEGATIVE; TROPONIN-I 0.05 ng/mL (0.0-0.30)
[2017-08-22 22:44] LABS: BASOPHIL (%) 0.1 % (0-1); EOSINOPHIL (%) 0.4 % (0-5); IMMATURE GRANULOCYTE (%) 0.4 % (0.0-0.7); LYMPHOCYTE (%) 34.4 % (15-42); LYMPHOCYTE COUNT 3.5 K/uL (1.0-2.8); MONOCYTE (%) 10.1 % (3-12); NEUTROPHIL (%) 54.6 % (45-76); NEUTROPHIL COUNT 5.5 K/uL (1.8-6.4); PLAT.SUFFICIENCY ADEQUATE; PLATELET COUNT 205 K/uL (156-360)
[2017-08-23 00:19] LABS: APPEARANCE CLEAR ((CLEAR)); BILIRUBIN NEGATIVE; BLOOD NEGATIVE; COLOR YELLOW ((YELLOW)); GLUCOSE (STRIP) NEGATIVE; KETONES NEGATIVE; LEUKOCYTES NEGATIVE; NITRITE NEGATIVE; PROTEIN (STRIP) NEGATIVE; UCUL ADDED? NO; UROBILINOGEN 0.2 MG/DL (0.2-1.0)
[2017-08-23] MEDS ORDERED: ZANTAC150 MG PO (01:39)
[2017-08-23 02:06] VITALS: BP 116/70
== END 2017-08-23 02:15 | disposition home or self-care (01) ==
LOC: EME → EDBD 21:12 → EME 21:12
PROVIDERS: Emergency Medicine
DX: R10.9 Unspecified abdominal pain (principal); J44.9 Chronic obstructive pulmonary disease, unspecified; I11.0 Hypertensive heart disease with heart failure; I50.9 Heart failure, unspecified; I25.2 Old myocardial infarction; K21.9 Gastro-esophageal reflux disease without esophagitis; E11.9 Type 2 diabetes mellitus without complications; F17.200 Nicotine dependence, unspecified, uncomplicated; Z86.73 Personal history of transient ischemic attack (TIA), and cerebral infarction without residual deficits; Z79.84 Long term (current) use of oral hypoglycemic drugs; Z79.82 Long term (current) use of aspirin
CPT/HCPCS: 71046; 80053; 81003; 83735; 84484; 85025; 93005; 94640; 94640 76

== ENCOUNTER 2017-08-26 18:51 | Emergency (ER) | payer OTHER ==
[~2017-08-26] VITALS: Ht 167.6 cm; Wt 84.9 kg
[~2017-08-26 18:51] MED LIST changes: +ZANTAC150 MG PO
[2017-08-26 20:42] LABS: ALBUMIN 3.7 g/dL (3.2-4.8); CHLORIDE 100 mEq/L (99-109); POTASSIUM 4.6 mEq/L (3.7-5.4); SODIUM 135 mEq/L (136-147)
[2017-08-26 20:45] LABS: GLUCOSE 171 mg/dL (70-99); TOTAL PROTEIN 6.3 g/dL (6.4-8.3)
[2017-08-26 20:46] LABS: HEMATOCRIT 34.7 % (38.0-50.0); HEMOGLOBIN 10.9 G/DL (12.5-16.6); MCH 23.2 PG (29.0-34.0); MCHC 31.4 G/DL (30.0-36.0); MCV 73.8 FL (86-99); NRBC (%) 0.4 /100 WBC (0-0); RBC DIS.WIDTH-CV 19.2 % (11.8-14.6); WHITE BLOOD COUNT 8.2 K/uL (4.1-10.2)
[2017-08-26 20:47] LABS: TOTAL BILIRUBIN 0.6 mg/dL (0.0-1.0)
[2017-08-26 20:48] LABS: ALKALINE PHOSPHATASE 40 IU/L (3-129); GFR ESTIMATE (CALCULATED) > 59 mL/min/ (58.99-99999)
[2017-08-26 20:49] LABS: UREA NITROGEN (BUN) 12 mg/dL (9-23)
[2017-08-26 20:50] LABS: AST (GOT) 8 IU/L (2-34)
[2017-08-26 20:51] LABS: ALT (GPT) 11 IU/L (3-49)
[2017-08-26 20:52] LABS: LIPASE 14 U/L (1.0-51.0)
[2017-08-26 20:54] LABS: TROP-I INTERPRETATION NEGATIVE; TROPONIN-I 0.04 ng/mL (0.0-0.30)
[2017-08-26 21:32] LABS: PLAT.SUFFICIENCY ADEQUATE
[2017-08-26 21:34] LABS: PLATELET COUNT 232 K/uL (156-360)
[2017-08-26 22:31] LABS: TROP-I INTERPRETATION NEGATIVE; TROPONIN-I 0.04 ng/mL (0.0-0.30)
[2017-08-26 23:55] VITALS: BP 127/69
== END 2017-08-27 00:06 | disposition home or self-care (01) ==
LOC: EME 18:51
PROVIDERS: Emergency Medicine
DX: R10.13 Epigastric pain (principal); I11.0 Hypertensive heart disease with heart failure; I50.9 Heart failure, unspecified; I48.91 Unspecified atrial fibrillation; E11.9 Type 2 diabetes mellitus without complications; Z79.84 Long term (current) use of oral hypoglycemic drugs; F17.200 Nicotine dependence, unspecified, uncomplicated; K21.9 Gastro-esophageal reflux disease without esophagitis; J44.9 Chronic obstructive pulmonary disease, unspecified; I25.2 Old myocardial infarction; Z86.73 Personal history of transient ischemic attack (TIA), and cerebral infarction without residual deficits
CPT/HCPCS: 71046; 80053; 83690; 84484; 85027; 93005; 94640; 99281; 99285

== ENCOUNTER 2017-10-02 20:32 | Emergency (ER) | payer OTHER ==
[~2017-10-02] VITALS: Ht 167.6 cm; Wt 71.3 kg
[~2017-10-02 20:32] MED LIST changes: -CARAFATE1 GM PO
[2017-10-02 21:54] LABS: BASOPHIL (%) 0.9 % (0-1); BASOPHIL COUNT 0.1 K/uL (0-0.1); EOSINOPHIL (%) 2.2 % (0-5); EOSINOPHIL COUNT 0.2 K/uL (0-0.3); HEMATOCRIT 32.9 % (38.0-50.0); HEMOGLOBIN 9.8 G/DL (12.5-16.6); IMMATURE GRANULOCYTE (%) 0.2 % (0.0-0.7); LYMPHOCYTE (%) 38.7 % (15-42); LYMPHOCYTE COUNT 3.4 K/uL (1.0-2.8); MCHC 29.8 G/DL (30.0-36.0); MCV 73.8 FL (86-99); MONOCYTE (%) 11.9 % (3-12); MONOCYTE COUNT 1.1 K/uL (0-0.8); NEUTROPHIL (%) 46.1 % (45-76); NEUTROPHIL COUNT 4.1 K/uL (1.8-6.4); PLATELET COUNT 226 K/uL (156-360); RBC DIS.WIDTH-CV 19.6 % (11.8-14.6); RED BLOOD COUNT 4.46 M/uL (4.00-5.50); WHITE BLOOD COUNT 8.8 K/uL (4.1-10.2)
[2017-10-02 22:00] LABS: ALBUMIN 3.8 g/dL (3.2-4.8); CHLORIDE 107 mEq/L (99-109); POTASSIUM 4.2 mEq/L (3.7-5.4); SODIUM 140 mEq/L (136-147)
[2017-10-02 22:03] LABS: GLUCOSE 109 mg/dL (70-99); TOTAL PROTEIN 6.5 g/dL (6.4-8.3)
[2017-10-02 22:05] LABS: TOTAL BILIRUBIN 0.5 mg/dL (0.0-1.0)
[2017-10-02 22:06] LABS: ALKALINE PHOSPHATASE 42 IU/L (3-129); CREATININE 0.9 mg/dL (0.6-1.3); GFR ESTIMATE (CALCULATED) > 59 mL/min/ (58.99-99999)
[2017-10-02 22:07] LABS: UREA NITROGEN (BUN) 9 mg/dL (9-23)
[2017-10-02 22:08] LABS: AST (GOT) 10 IU/L (2-34)
[2017-10-02 22:09] LABS: ALT (GPT) 8 IU/L (3-49)
[2017-10-02 22:10] LABS: LIPASE 22 U/L (1.0-51.0)
[2017-10-02 23:55] LABS: APPEARANCE CLEAR ((CLEAR)); BILIRUBIN NEGATIVE; BLOOD NEGATIVE; COLOR YELLOW ((YELLOW)); GLUCOSE (STRIP) NEGATIVE; KETONES NEGATIVE; LEUKOCYTES NEGATIVE; NITRITE NEGATIVE; PROTEIN (STRIP) NEGATIVE; SPECIFIC GRAVITY 1.011 (1.000-1.030); UCUL ADDED? NO; UROBILINOGEN 0.2 MG/DL (0.2-1.0)
[2017-10-03] MEDS ORDERED: CARAFATE1 GM PO (00:07)
[2017-10-03 01:09] VITALS: BP 114/70
== END 2017-10-03 01:10 | disposition home or self-care (01) ==
LOC: EME → EDBD 20:32 → EME 20:32
PROVIDERS: Emergency Medicine
DX: K29.70 Gastritis, unspecified, without bleeding (principal); E27.8 Other specified disorders of adrenal gland; N28.1 Cyst of kidney, acquired; M51.26 Other intervertebral disc displacement, lumbar region; N40.0 Benign prostatic hyperplasia without lower urinary tract symptoms; M48.061 Spinal stenosis, lumbar region without neurogenic claudication; E11.9 Type 2 diabetes mellitus without complications; I25.2 Old myocardial infarction; I50.9 Heart failure, unspecified; F17.200 Nicotine dependence, unspecified, uncomplicated; Z98.890 Other specified postprocedural states; Z79.51 Long term (current) use of inhaled steroids; Z87.19 Personal history of other diseases of the digestive system; Z86.73 Personal history of transient ischemic attack (TIA), and cerebral infarction without residual deficits; Z85.9 Personal history of malignant neoplasm, unspecified
CPT/HCPCS: 74176; 80053; 81003; 83690; 85025; 99281; 99285

== ENCOUNTER → 2017-10-02 | Outpatient (CLI) | payer OTHER ==
[~2017-10-02] VITALS: Ht 162.6 cm; Wt 74.8 kg
[~2017-10-02] MED LIST changes: +CARAFATE1 GM PO; +PROVENTIL,2.5 MG/3 M IH
== END | disposition home or self-care (01) ==
LOC: AMB 13:34
PROVIDERS: Internal Medicine Gastroenterology
DX: K25.9 Gastric ulcer, unspecified as acute or chronic, without hemorrhage or perforation (principal); D64.9 Anemia, unspecified; J44.9 Chronic obstructive pulmonary disease, unspecified; I25.5 Ischemic cardiomyopathy; I48.91 Unspecified atrial fibrillation; E03.9 Hypothyroidism, unspecified; I25.10 Atherosclerotic heart disease of native coronary artery without angina pectoris; Z95.5 Presence of coronary angioplasty implant and graft; Z95.810 Presence of automatic (implantable) cardiac defibrillator; E78.5 Hyperlipidemia, unspecified; F17.210 Nicotine dependence, cigarettes, uncomplicated
CPT/HCPCS: 82948; 88305; 88342 TC; 93005

== ENCOUNTER 2017-10-05 20:04 | Observation (INO) | payer OTHER ==
[~2017-10-05] VITALS: Ht 167.6 cm; Wt 68.1 kg
[~2017-10-05 20:04] MED LIST changes: +CARAFATE1 GM PO
[2017-10-05 21:04] LABS: HEMATOCRIT 32.4 % (38.0-50.0); HEMOGLOBIN 9.9 G/DL (12.5-16.6); MCH 22.4 PG (29.0-34.0); MCHC 30.6 G/DL (30.0-36.0); MCV 73.3 FL (86-99); PLATELET COUNT 217 K/uL (156-360); RBC DIS.WIDTH-CV 19.4 % (11.8-14.6); RBC DIS.WIDTH-SD 51.3 % (39-53); RED BLOOD COUNT 4.42 M/uL (4.00-5.50); WHITE BLOOD COUNT 7.1 K/uL (4.1-10.2)
[2017-10-05 21:07] LABS: CHLORIDE 106 mEq/L (99-109); POTASSIUM 4.3 mEq/L (3.7-5.4); SODIUM 140 mEq/L (136-147)
[2017-10-05 21:09] LABS: GLUCOSE 148 mg/dL (70-99)
[2017-10-05 21:13] LABS: GFR ESTIMATE (CALCULATED) > 59 mL/min/ (58.99-99999)
[2017-10-05 21:14] LABS: UREA NITROGEN (BUN) 11 mg/dL (9-23)
[2017-10-05 21:22] LABS: TROP-I INTERPRETATION NEGATIVE; TROPONIN-I 0.04 ng/mL (0.0-0.30)
[2017-10-06 00:36] LABS: TROP-I INTERPRETATION NEGATIVE; TROPONIN-I 0.07 ng/mL (0.0-0.30)
[2017-10-06 04:21] VITALS: BP 132/82
[2017-10-06 04:31] LABS: MAGNESIUM 1.5 mg/dL (1.3-2.7)
[2017-10-06 06:06] LABS: TROP-I INTERPRETATION NEGATIVE; TROPONIN-I 0.07 ng/mL (0.0-0.30)
[2017-10-06 11:48] VITALS: BP 106/61
[2017-10-06 13:38] LABS: TROP-I INTERPRETATION NEGATIVE; TROPONIN-I 0.04 ng/mL (0.0-0.30)
[2017-10-06 14:35] VITALS: BP 106/58
[2017-10-06] MEDS ORDERED: MEDROL DOSEPAK4 MG PO (14:37)
[2017-10-07] MEDS ORDERED: ZANTAC150 MG PO (00:35)
== END 2017-10-06 15:43 | disposition home or self-care (01) ==
LOC: EME 20:04 → ENPENDDIS 10-06 → EDOF 10-06 02:55 → 4EAST 10-06 02:55 → ENRESERV 10-06 02:56 → 4EAST 10-06 04:15
PROVIDERS: Emergency Medicine; Hospitalist; Physician Assistant
DX: I48.0 Paroxysmal atrial fibrillation (principal); I47.2 Ventricular tachycardia; Z95.810 Presence of automatic (implantable) cardiac defibrillator; I25.5 Ischemic cardiomyopathy; I11.0 Hypertensive heart disease with heart failure; I50.9 Heart failure, unspecified; I25.10 Atherosclerotic heart disease of native coronary artery without angina pectoris; Z95.5 Presence of coronary angioplasty implant and graft; J44.9 Chronic obstructive pulmonary disease, unspecified; E78.5 Hyperlipidemia, unspecified; D63.8 Anemia in other chronic diseases classified elsewhere; Z87.11 Personal history of peptic ulcer disease; I27.20 Pulmonary hypertension, unspecified; E11.9 Type 2 diabetes mellitus without complications; Z80.3 Family history of malignant neoplasm of breast; F17.210 Nicotine dependence, cigarettes, uncomplicated; Z79.84 Long term (current) use of oral hypoglycemic drugs
CPT/HCPCS: 71046; 80048; 82948; 83735; 84484; 85027; 93005; 94640 76; 94760; 99202; 99281; 99285; G0378; J1644; J1815; J3475; J7512

== ENCOUNTER 2017-10-06 19:25 | Emergency (ER) | payer OTHER ==
[~2017-10-06] VITALS: Ht 167.6 cm; Wt 71.6 kg
[2017-10-06 20:44] LABS: ALBUMIN 4.1 g/dL (3.2-4.8); CHLORIDE 104 mEq/L (99-109); POTASSIUM 4.7 mEq/L (3.7-5.4); SODIUM 135 mEq/L (136-147)
[2017-10-06 20:45] LABS: MAGNESIUM 2.1 mg/dL (1.3-2.7)
[2017-10-06 20:46] LABS: BASOPHIL (%) 0.2 % (0-1); EOSINOPHIL (%) 0.3 % (0-5); GLUCOSE 185 mg/dL (70-99); HEMATOCRIT 32.5 % (38.0-50.0); HEMOGLOBIN 9.9 G/DL (12.5-16.6); IMMATURE GRANULOCYTE (%) 0.6 % (0.0-0.7); LYMPHOCYTE (%) 26.5 % (15-42); LYMPHOCYTE COUNT 1.7 K/uL (1.0-2.8); MCH 22.1 PG (29.0-34.0); MCHC 30.5 G/DL (30.0-36.0); MCV 72.5 FL (86-99); MONOCYTE (%) 3.5 % (3-12); MONOCYTE COUNT 0.2 K/uL (0-0.8); NEUTROPHIL (%) 68.9 % (45-76); NEUTROPHIL COUNT 4.4 K/uL (1.8-6.4); PLATELET COUNT 233 K/uL (156-360); RBC DIS.WIDTH-CV 19.5 % (11.8-14.6); RBC DIS.WIDTH-SD 50.8 % (39-53); RED BLOOD COUNT 4.48 M/uL (4.00-5.50); TOTAL PROTEIN 7.2 g/dL (6.4-8.3); WHITE BLOOD COUNT 6.4 K/uL (4.1-10.2)
[2017-10-06 20:48] LABS: INTER. NORMALIZED RATIO 1.4
[2017-10-06 20:50] LABS: ALKALINE PHOSPHATASE 47 IU/L (3-129); CREATININE 1.1 mg/dL (0.6-1.3); GFR ESTIMATE (CALCULATED) > 59 mL/min/ (58.99-99999); TOTAL BILIRUBIN 0.7 mg/dL (0.0-1.0)
[2017-10-06 20:51] LABS: AST (GOT) 12 IU/L (2-34); PTT 30.9 SEC (25-37); UREA NITROGEN (BUN) 16 mg/dL (9-23)
[2017-10-06 20:53] LABS: ALT (GPT) 10 IU/L (3-49); LIPASE 18 U/L (1.0-51.0)
[2017-10-06 21:00] LABS: TROP-I INTERPRETATION NEGATIVE; TROPONIN-I 0.03 ng/mL (0.0-0.30)
[2017-10-07] MEDS ORDERED: ZANTAC150 MG PO (00:35)
[2017-10-07 01:14] VITALS: BP 94/47
== END 2017-10-07 01:16 | disposition home or self-care (01) ==
LOC: EME → EDBD 19:25 → EME 19:25
PROVIDERS: Emergency Medicine
DX: G89.29 Other chronic pain (principal); R10.13 Epigastric pain; I11.0 Hypertensive heart disease with heart failure; I50.9 Heart failure, unspecified; I25.2 Old myocardial infarction; Z86.73 Personal history of transient ischemic attack (TIA), and cerebral infarction without residual deficits; J44.9 Chronic obstructive pulmonary disease, unspecified; F17.200 Nicotine dependence, unspecified, uncomplicated
CPT/HCPCS: 80048; 80053; 83690; 83735; 84484; 85025; 85610; 85730; 93005; 99281; 99285

== ENCOUNTER 2017-10-08 20:37 | Emergency (ER) | payer OTHER ==
[~2017-10-08] VITALS: Ht 167.6 cm; Wt 71.4 kg
[2017-10-08 21:45] LABS: HEMATOCRIT 30.6 % (38.0-50.0); HEMOGLOBIN 9.2 G/DL (12.5-16.6); MCH 22.2 PG (29.0-34.0); MCHC 30.1 G/DL (30.0-36.0); MCV 73.9 FL (86-99); RBC DIS.WIDTH-CV 19.8 % (11.8-14.6); RBC DIS.WIDTH-SD 52.8 % (39-53); RED BLOOD COUNT 4.14 M/uL (4.00-5.50); WHITE BLOOD COUNT 8.4 K/uL (4.1-10.2)
[2017-10-08 21:52] LABS: CHLORIDE 104 mEq/L (99-109); POTASSIUM 4.5 mEq/L (3.7-5.4)
[2017-10-08 21:53] LABS: SODIUM 138 mEq/L (136-147)
[2017-10-08 21:54] LABS: GLUCOSE 203 mg/dL (70-99)
[2017-10-08 21:58] LABS: GFR ESTIMATE (CALCULATED) > 59 mL/min/ (58.99-99999)
[2017-10-08 21:59] LABS: UREA NITROGEN (BUN) 18 mg/dL (9-23)
[2017-10-08 22:19] LABS: APPEARANCE CLEAR ((CLEAR)); BILIRUBIN NEGATIVE; BLOOD NEGATIVE; COLOR STRAW ((YELLOW)); GLUCOSE (STRIP) NEGATIVE; KETONES NEGATIVE; LEUKOCYTES NEGATIVE; NITRITE NEGATIVE; PROTEIN (STRIP) NEGATIVE; SPECIFIC GRAVITY 1.008 (1.000-1.030); UROBILINOGEN 0.2 MG/DL (0.2-1.0)
[2017-10-08 22:23] LABS: PLAT.SUFFICIENCY ADEQUATE; PLATELET COUNT 211 K/uL (156-360)
[2017-10-08 23:02] VITALS: BP 99/63
== END 2017-10-08 23:03 | disposition home or self-care (01) ==
LOC: EME → EDBD 20:37 → EME 20:37
PROVIDERS: Family Medicine
DX: R10.9 Unspecified abdominal pain (principal); M79.651 Pain in right thigh; M54.9 Dorsalgia, unspecified; Z98.890 Other specified postprocedural states; I25.2 Old myocardial infarction; Z95.5 Presence of coronary angioplasty implant and graft; Z95.0 Presence of cardiac pacemaker; I10 Essential (primary) hypertension; E11.9 Type 2 diabetes mellitus without complications; J44.9 Chronic obstructive pulmonary disease, unspecified; Z86.73 Personal history of transient ischemic attack (TIA), and cerebral infarction without residual deficits; Z79.84 Long term (current) use of oral hypoglycemic drugs; F17.200 Nicotine dependence, unspecified, uncomplicated; F12.90 Cannabis use, unspecified, uncomplicated
CPT/HCPCS: 80048; 81003; 83605; 85027; 99281; 99285; J1885; J7030

== ENCOUNTER 2017-10-11 09:42 | Inpatient (IN) | payer OTHER ==
[~2017-10-11] VITALS: Ht 167.6 cm; Wt 71.7 kg
[2017-10-11 10:54] LABS: HEMATOCRIT 32.1 % (38.0-50.0); HEMOGLOBIN 9.8 G/DL (12.5-16.6); MCH 22.3 PG (29.0-34.0); MCHC 30.5 G/DL (30.0-36.0); MCV 73.1 FL (86-99); PLATELET COUNT 243 K/uL (156-360); RBC DIS.WIDTH-CV 19.6 % (11.8-14.6); RBC DIS.WIDTH-SD 51.8 % (39-53); RED BLOOD COUNT 4.39 M/uL (4.00-5.50); WHITE BLOOD COUNT 8.1 K/uL (4.1-10.2)
[2017-10-11 10:55] LABS: INTER. NORMALIZED RATIO 1.3
[2017-10-11 11:01] LABS: ALBUMIN 3.9 g/dL (3.2-4.8); CHLORIDE 105 mEq/L (99-109); POTASSIUM 3.7 mEq/L (3.7-5.4); SODIUM 140 mEq/L (136-147)
[2017-10-11 11:04] LABS: GLUCOSE 133 mg/dL (70-99); TOTAL PROTEIN 6.7 g/dL (6.4-8.3)
[2017-10-11 11:05] LABS: MAGNESIUM 1.4 mg/dL (1.3-2.7)
[2017-10-11 11:06] LABS: TOTAL BILIRUBIN 0.7 mg/dL (0.0-1.0)
[2017-10-11 11:07] LABS: ALKALINE PHOSPHATASE 40 IU/L (3-129); CREATININE 0.9 mg/dL (0.6-1.3); GFR ESTIMATE (CALCULATED) > 59 mL/min/ (58.99-99999)
[2017-10-11 11:08] LABS: UREA NITROGEN (BUN) 15 mg/dL (9-23)
[2017-10-11 11:09] LABS: AST (GOT) 10 IU/L (2-34)
[2017-10-11 11:10] LABS: ALT (GPT) 10 IU/L (3-49)
[2017-10-11 11:16] LABS: TROP-I INTERPRETATION NEGATIVE; TROPONIN-I 0.05 ng/mL (0.0-0.30)
[2017-10-11 12:59] LABS: APPEARANCE CLEAR ((CLEAR)); BILIRUBIN NEGATIVE; BLOOD NEGATIVE; COLOR YELLOW ((YELLOW)); GLUCOSE (STRIP) NEGATIVE; KETONES NEGATIVE; LEUKOCYTES NEGATIVE; NITRITE NEGATIVE; PROTEIN (STRIP) 30; UROBILINOGEN 0.2 MG/DL (0.2-1.0)
[2017-10-11 15:45] VITALS: BP 179/94
[2017-10-11 16:29] VITALS: BP 146/78
[2017-10-11 17:20] LABS: TROP-I INTERPRETATION NEGATIVE; TROPONIN-I 0.08 ng/mL (0.0-0.30)
[2017-10-11 18:56] VITALS: BP 120/77
[2017-10-11] MEDS ORDERED: ELIQUIS5 MG PO (18:58)
[2017-10-11 23:00] VITALS: BP 137/70
[2017-10-12 04:22] VITALS: BP 113/57
[2017-10-12 05:31] LABS: HEMATOCRIT 28.4 % (38.0-50.0); HEMOGLOBIN 8.6 G/DL (12.5-16.6); MCH 22.3 PG (29.0-34.0); MCHC 30.3 G/DL (30.0-36.0); MCV 73.6 FL (86-99); PLATELET COUNT 230 K/uL (156-360); RBC DIS.WIDTH-CV 19.7 % (11.8-14.6); RBC DIS.WIDTH-SD 52.7 % (39-53); RED BLOOD COUNT 3.86 M/uL (4.00-5.50); WHITE BLOOD COUNT 10.3 K/uL (4.1-10.2)
[2017-10-12 05:46] LABS: ALBUMIN 3.2 G/DL (3.2-4.8); ALKALINE PHOSPHATASE 29 IU/L (3-129); ALT (GPT) 6 IU/L (3-49); AST (GOT) 9 IU/L (2-34); CHLORIDE 108 MEQ/L (99-109); CREATININE 0.9 MG/DL (0.6-1.3); GFR ESTIMATE (CALCULATED) > 59 mL/min/ (58.99-99999); GLUCOSE 115 mg/dL (70-99); POTASSIUM 4.1 MEQ/L (3.7-5.4); SODIUM 139 MEQ/L (136-147); TOTAL BILIRUBIN 0.5 MG/DL (0.0-1.0); TOTAL PROTEIN 5.6 G/DL (6.4-8.3); UREA NITROGEN (BUN) 15 mg/dL (9-23)
[2017-10-12 07:35] VITALS: BP 138/70
[2017-10-12 11:16] VITALS: BP 118/66
[2017-10-12 19:05] VITALS: BP 105/55
[2017-10-13 00:15] VITALS: BP 109/68
[2017-10-13 03:35] VITALS: BP 113/58
[2017-10-13 05:54] LABS: HEMATOCRIT 30.3 % (38.0-50.0); MCHC 29.7 G/DL (30.0-36.0); MCV 74.1 FL (86-99); PLATELET COUNT 234 K/uL (156-360); RBC DIS.WIDTH-CV 19.8 % (11.8-14.6); RBC DIS.WIDTH-SD 52.8 % (39-53); RED BLOOD COUNT 4.09 M/uL (4.00-5.50); WHITE BLOOD COUNT 8.9 K/uL (4.1-10.2)
[2017-10-13 05:57] LABS: CHLORIDE 108 MEQ/L (99-109); GFR ESTIMATE (CALCULATED) > 59 mL/min/ (58.99-99999); GLUCOSE 126 mg/dL (70-99); MAGNESIUM 1.7 mg/dl (1.3-2.7); POTASSIUM 3.9 MEQ/L (3.7-5.4); SODIUM 139 MEQ/L (136-147); UREA NITROGEN (BUN) 12 mg/dL (9-23)
[2017-10-13 09:00] VITALS: BP 107/59
[2017-10-13 17:00] VITALS: BP 91/53
[2017-10-13 20:49] VITALS: BP 137/93
[2017-10-13 23:48] VITALS: BP 118/73
[2017-10-14 04:58] VITALS: BP 113/60
[2017-10-14 08:45] VITALS: BP 115/73
[2017-10-14 12:06] VITALS: BP 98/60
[2017-10-14 15:26] VITALS: BP 125/68
[2017-10-14] MEDS ORDERED: SOTALOL80 MG PO (15:31)
[2017-10-14] MEDS ORDERED: NITROSTAT0.4 MG SL (15:31)
[2017-10-14] MEDS ORDERED: LOPRESSOR25 MG PO (15:32)
[2017-10-14] MEDS ORDERED: CYANOCOBALAM1000 MCG PO (15:35)
[2017-10-14] MEDS ORDERED: TRAMADOL HCL50 MG PO (15:37)
== END 2017-10-14 18:21 | DRG 308 ==
LOC: EME 09:42 → 4EAST 13:58 → EDOF 13:58 → ENRESERV 14:00 → 4EAST 15:01 → CANRESERV 10-14 13:27 → ENRESERV 10-14 13:27 → 4EAST 10-14 16:42
PROVIDERS: Emergency Medicine; Hospitalist; Physician Assistant
DX: I47.2 Ventricular tachycardia (principal); I48.0 Paroxysmal atrial fibrillation; I11.0 Hypertensive heart disease with heart failure; I50.33 Acute on chronic diastolic (congestive) heart failure; I25.10 Atherosclerotic heart disease of native coronary artery without angina pectoris; I25.5 Ischemic cardiomyopathy; E11.9 Type 2 diabetes mellitus without complications; K30 Functional dyspepsia; J44.9 Chronic obstructive pulmonary disease, unspecified; I25.2 Old myocardial infarction; Z95.810 Presence of automatic (implantable) cardiac defibrillator; Z98.61 Coronary angioplasty status; E78.5 Hyperlipidemia, unspecified; F17.210 Nicotine dependence, cigarettes, uncomplicated; I49.3 Ventricular premature depolarization; Z86.73 Personal history of transient ischemic attack (TIA), and cerebral infarction without residual deficits; I42.0 Dilated cardiomyopathy; J84.10 Pulmonary fibrosis, unspecified
CPT/HCPCS: 71046; 71250; 73130; 80048; 80053; 81003; 82800; 82948; 83605; 83735; 83880; 83930; 84484; 85027; 85610; 85730; 86850; 86900; 86901; 87040; 87086; 93005; 94640; 94640 76; 99202; 99281; 99285; J1160; J1644; J1815; J1885; J3475; J7030